=== PATIENT | female | born 1975 | race Caucasian/White ===

== ENCOUNTER → 2016-08-23 | Outpatient (CLI) | payer MEDICAID ==
[~2016-08-23] MED LIST: ALBU8.5H2 IH; ALPR1TAB7 PO; FLUT1DIS26 IH; HYDR-2890 PO; HYDR-757 PO; IBUP-1780 PO; IBUP800T26 PO; OXYC-12 PO; PHEN-566 PO; SULF-222 PO; SULF1TAB35 PO
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
--- NOTE | 2016-08-23 17:09 | Diagnostic Imaging Report ---
EXAMINATION: Bilateral digital screening mammogram with CAD. The current study was also evaluated with a Computer Aided Detection (CAD) system. INDICATION: Screening. No current complaints stated on the questionnaire. COMPARISON: None. This is baseline study. FINDINGS: The breasts are composed of scattered fibroglandular densities. Lateral right breast asymmetry measuring 7 mm is seen, possibly related to summation artifact of parenchyma. The left breast demonstrates no significant abnormality. No suspicious calcification is seen. IMPRESSION: Focal compression views and ultrasound evaluation for lateral right breast asymmetry is recommended. ACR BI-RADS Category 0: Incomplete. (Needs additional imaging evaluation). Result letter will be mailed to the patient. Note: At least 10% of breast cancer is not imaged by mammography. Dictated by: Dictated on workstation # [id number]
== END ==
LOC: RAD 12:57
PROVIDERS: ATTEND Obstetrics & Gynecology
DX: Z12.31 Encounter for screening mammogram for malignant neoplasm of breast (principal)
CPT/HCPCS: 77067

== ENCOUNTER → 2016-08-31 | Outpatient (CLI) | payer MEDICAID ==
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
--- NOTE | 2016-08-31 08:25 | Diagnostic Imaging Report ---
Right breast diagnostic mammogram. CAD is utilized. INDICATION: Asymmetry in the outer aspect of the right breast. FINDINGS: Focal compression view demonstrates persistent asymmetry in the outer aspect of the right breast measuring 6 mm in size. There is no definitive correlate on the true lateral projection. IMPRESSION: Persistent slightly more prominent asymmetry along the lateral aspect of the right breast and focal compression view with no definite correlate on the true lateral projection. Ultrasound evaluation pending. ACR BI-RADS Category 0: Incomplete. (Needs additional imaging evaluation). Result letter will be mailed to the patient. Note: At least 10% of breast cancer is not imaged by mammography. Dictated by: Dictated on workstation # [id number]
--- NOTE | 2016-08-31 12:36 | Diagnostic Imaging Report ---
Right breast ultrasound. INDICATION: Lateral right breast asymmetry seen on mammography. FINDINGS: At 9 o'clock zone, 9 cm from the nipple, there is a 6 x 3 x 6-mm cluster of cysts seen. The mammographic asymmetry appears close up to the nipple and is slightly larger raising question that this could be a different lesion. No other lesion is detected by ultrasound. IMPRESSION: Questionably matching 6-mm cluster of cysts lateral aspect of the right breast is seen. Four-month followup right breast mammogram is recommended to ensure stability. ACR BI-RADS Category 3: Probably benign findings. Result letter will be mailed to the patient. Note: At least 10% of breast cancer is not imaged by mammography. Dictated by: Dictated on workstation # [id number]
== END ==
LOC: RAD 07:52
PROVIDERS: ATTEND Obstetrics & Gynecology
DX: R92.8 Other abnormal and inconclusive findings on diagnostic imaging of breast (principal)

== ENCOUNTER → 2018-08-07 | Outpatient (CLI) | payer MEDICAID ==
[~2018-08-07] MED LIST changes: +HYDR-4226 PO; -HYDR-757 PO
--- NOTE | 2018-08-07 21:20 | Diagnostic Imaging Report ---
INDICATION: Routine screening. Comparison is made with prior mammogram from 08/23/2016. 2-D and 3-D bilateral screening mammography was performed with a Computer Aided Detection (CAD) system. FINDINGS: Scattered fibroglandular densities are identified bilaterally. The parenchymal pattern is stable. Density in the upper portion of the right breast appear stable. No new mass or malignant-appearing microcalcifications are seen. Axillae are unremarkable. Patient has bilateral nipple piercings. IMPRESSION: No mammographic features suspicious for malignancy are identified. ACR BI-RADS Category 1: Negative. Result letter will be mailed to the patient. Note: At least 10% of breast cancer is not imaged by mammography. Dictated by: Dictated on workstation # [id number]
== END ==
LOC: RAD 14:23
PROVIDERS: ATTEND Obstetrics & Gynecology
DX: Z12.31 Encounter for screening mammogram for malignant neoplasm of breast (principal)
CPT/HCPCS: 77067

== ENCOUNTER 2018-08-22 11:49 | Outpatient (CLI) | payer MEDICAID ==
[~2018-08-22] VITALS: Ht 165.1 cm; Wt 110.5 kg
[2018-08-22] MEDS ORDERED: ALPR1TAB7 PO (12:02)
[2018-08-22] MEDS ORDERED: BUDE10.2 IH (12:02)
[2018-08-22] MEDS ORDERED: IBUP-1780 PO (12:02)
[2018-08-22] MEDS ORDERED: RT-ALBUINH IH (12:02)
[2018-08-22] MEDS ORDERED: PHEN-483 PO (12:02)
[2018-08-22 12:08] VITALS: BP 114/76
[2018-08-22 12:58] LABS: BASOPHILS % (AUTO) 1 % (0-10); EOSINOPHILS # (AUTO) 0.2 10^3/uL (0.0-0.3); EOSINOPHILS % (AUTO) 3 % (0-10); HEMATOCRIT 48 % (35-52); HEMOGLOBIN 15.4 G/DL (11.5-16.0); LYMPHOCYTES # (AUTO) 1.3 X 10^3 (1.0-4.0); LYMPHOCYTES % (AUTO) 22 % (12-44); MEAN CORPUSCULAR HEMOGLOBIN 32 PG (25-34); MEAN CORPUSCULAR HGB CONC 32 G/DL (32-36); MEAN CORPUSCULAR VOLUME 99 FL (80-99); MEAN PLATELET VOLUME 9.2 FL (7.4-10.4); MONOCYTES # (AUTO) 0.4 X 10^3 (0.0-1.0); MONOCYTES % (AUTO) 7 % (0-12); NEUTROPHILS # (AUTO) 4.1 X 10^3 (1.8-7.8); NEUTROPHILS % (AUTO) 68 % (42-75); PLATELET COUNT 338 10^3/uL (130-400); WHITE BLOOD COUNT 6.1 10^3/uL (4.3-11.0)
== END 2018-08-22 13:10 | disposition home or self-care (01) ==
LOC: PREOP 11:49
PROVIDERS: ATTEND Obstetrics & Gynecology
DX: Z01.812 Encounter for preprocedural laboratory examination (principal); Z11.2 Encounter for screening for other bacterial diseases; N92.0 Excessive and frequent menstruation with regular cycle; N39.3 Stress incontinence (female) (male); N81.4 Uterovaginal prolapse, unspecified; D64.9 Anemia, unspecified
CPT/HCPCS: 36415; 85025; 86850; 86900; 86901; 87081

== ENCOUNTER 2018-08-29 10:14 | Inpatient (IN) | payer MEDICAID | END 2018-09-01 13:40 | disposition home or self-care (01) | LOC: SDC 10:14 → 4TH 16:40 → SDC 08-30 12:16 → 4TH 08-30 14:00 ==

== ENCOUNTER → 2018-12-29 | Outpatient (CLI) | payer MEDICAID ==
[~2018-12-29] MED LIST changes: +BUDE10.2 IH; +DOCU-143 PO; +HOLD METFORMIN - RECEIVED CONTRAST 20 ML VIAL IV SCH; +IOHEXOL 350 MG/ML 100 ML (OMNIPAQUE 350) VIAL IV ONE; +NICO-587 TD; +NS 100 ML (IVPB) BAG IV ONE; +OXYC1TAB87 PO; +PHEN-483 PO; +RT-ALBUINH IH
--- NOTE | 2018-12-29 15:24 | Diagnostic Imaging Report ---
PROCEDURE: CT abdomen and pelvis with contrast. TECHNIQUE: Multiple contiguous axial images were obtained through the abdomen and pelvis after administration of intravenous contrast. Auto Exposure Controls were utilized during the CT exam to meet ALARA standards for radiation dose reduction. INDICATION: Abdominal wall hernia. COMPARISON: Correlation is made with prior CT from 12/04/2015. FINDINGS: The lung bases are clear. The liver demonstrates mild generalized low density consistent with hepatic steatosis. Hyperdensity in the left lobe of the liver is noted measuring 15 mm. This is isodense to the liver on delayed images and most likely represents a hemangioma. The gallbladder appears to be surgically absent. There is no biliary duct dilatation. Pancreas and spleen are unremarkable. No adrenal mass is detected. The right kidney is unremarkable. Left kidney does contain a 3 mm nonobstructing calculus in the upper pole. No hydronephrosis is seen. Aorta is nonaneurysmal. The small and large bowel loops appear to be normal in caliber. No obstruction is seen. There are postsurgical changes involving small bowel loops in the right abdomen. There is diverticulosis of the sigmoid but no evidence of acute diverticulitis. Bladder is decompressed. Uterus is unremarkable. There is a midline and left paramidline fat containing ventral hernia. No herniated bowel loops are identified. IMPRESSION: 1. Hepatic steatosis. 2. Probable hemangioma in the left lobe of the liver. 3. Fat-containing midline and left paramidline ventral hernia. No bowel obstruction is seen. 4. Uncomplicated diverticulosis. Dictated by: Dictated on workstation # [id number]
== END ==
LOC: RAD 14:32
PROVIDERS: ATTEND Obstetrics & Gynecology
DX: K43.9 Ventral hernia without obstruction or gangrene (principal); K76.0 Fatty (change of) liver, not elsewhere classified; K57.30 Diverticulosis of large intestine without perforation or abscess without bleeding
CPT/HCPCS: 74177

== ENCOUNTER 2019-04-08 12:22 | Outpatient (CLI) | payer MEDICAID ==
[~2019-04-08] VITALS: Ht 166.4 cm; Wt 112.1 kg
[~2019-04-08 12:22] MED LIST changes: -HOLD METFORMIN - RECEIVED CONTRAST 20 ML VIAL IV SCH; -IOHEXOL 350 MG/ML 100 ML (OMNIPAQUE 350) VIAL IV ONE; -NS 100 ML (IVPB) BAG IV ONE
[2019-04-08 12:35] VITALS: BP 125/81
[2019-04-08] MEDS ORDERED: FLUO20CA25 PO (12:35)
[2019-04-08] MEDS ORDERED: PANT40TA3 PO (12:35)
[2019-04-08] MEDS ORDERED: IBUP-1780 PO (12:35)
[2019-04-08 13:04] LABS: BASOPHILS % (AUTO) 1 % (0-10); EOSINOPHILS # (AUTO) 0.1 10^3/uL (0.0-0.3); EOSINOPHILS % (AUTO) 2 % (0-10); HEMATOCRIT 41 % (35-52); HEMOGLOBIN 13.1 G/DL (11.5-16.0); LYMPHOCYTES # (AUTO) 1.3 X 10^3 (1.0-4.0); LYMPHOCYTES % (AUTO) 19 % (12-44); MEAN CORPUSCULAR HEMOGLOBIN 31 PG (25-34); MEAN CORPUSCULAR HGB CONC 32 G/DL (32-36); MEAN CORPUSCULAR VOLUME 97 FL (80-99); MEAN PLATELET VOLUME 9.1 FL (7.4-10.4); MONOCYTES # (AUTO) 0.6 X 10^3 (0.0-1.0); MONOCYTES % (AUTO) 8 % (0-12); NEUTROPHILS # (AUTO) 4.8 X 10^3 (1.8-7.8); NEUTROPHILS % (AUTO) 70 % (42-75); PLATELET COUNT 381 10^3/uL (130-400); WHITE BLOOD COUNT 6.8 10^3/uL (4.3-11.0)
== END 2019-04-08 12:55 | disposition home or self-care (01) ==
LOC: PREOP 12:22
PROVIDERS: ATTEND Obstetrics & Gynecology
DX: Z01.818 Encounter for other preprocedural examination (principal); N92.0 Excessive and frequent menstruation with regular cycle; N39.3 Stress incontinence (female) (male); N81.89 Other female genital prolapse; D64.9 Anemia, unspecified
CPT/HCPCS: 36415; 85025; 86850; 86900; 86901; 87081

== ENCOUNTER 2019-04-17 10:18 | Day surgery (SDC) | payer MEDICAID ==
[~2019-04-17] VITALS: Ht 112.1 cm; Wt 112.1 kg
[2019-04-17] VITALS (15 sets, daily range): BP systolic 111–146; BP diastolic 71–101
[~2019-04-17 10:18] MED LIST changes: +FLUO20CA25 PO; +PANT40TA3 PO
[2019-04-17] MEDS ORDERED: LACTATED RINGERS 1,000 ML IV PRN (10:29)
[2019-04-17] MEDS ORDERED: ceFAZolin INJECTION 1,000 MG in WATER (STERILE) FOR INJECTION 10 ML IV ONE (10:30)
[2019-04-17] MEDS ORDERED: MIDAZOLAM 2 MG/2 ML (VERSED) VIAL IV ONE (10:45)
[2019-04-17] MEDS ORDERED: FAMOTIDINE 20MG/2ML IV (PEPCID) IV ONE (10:45)
[2019-04-17] MEDS ORDERED: ONDANSETRON 4 MG/2 ML (SDV) Z0FRAN ONE (10:56)
[2019-04-17] MEDS ORDERED: ROCURONIUM 10 MG/ML 5 ML SYRINGE IV ONE (10:56)
[2019-04-17] MEDS ORDERED: proPOfol 200 MG/20 ML (DIPRIVAN) VIAL IV ONE (10:56)
[2019-04-17] MEDS ORDERED: SEVOFLURANE (ULTANE) 15 ML INHAL SOLN ONE ×10 (10:56→15:22)
[2019-04-17] MEDS ORDERED: LIDOCAINE PF 2% 5 ML (XYLOCAINE) VIAL ONE (10:56)
[2019-04-17] MEDS ORDERED: DEXAMETHASONE 10 MG/ML (DECADRON) 1 ML VIAL ONE (10:56)
[2019-04-17] MEDS ORDERED: MIDAZOLAM 2 MG/2 ML (VERSED) VIAL ONE (10:57)
[2019-04-17] MEDS ORDERED: fentaNYL INJECTION 250 MCG/5 ML AMP ONE (10:57)
[2019-04-17] MEDS ORDERED: BUPIVACAINE 0.25% 30 ML (SENSORCAINE) VIAL ONE (11:38)
[2019-04-17] MEDS ORDERED: ESTRADIOL VAGINAL CREAM 42.5 GM (ESTRACE) VG ONE (11:38)
--- NOTE | 2019-04-17 12:11 | Progress Note-Pre Operative ---
Pre-Operative Progress Note H&P Reviewed The H&P was reviewed, patient examined and no changes noted. Date Seen by Provider: Apr 17, 2019 Time Seen by Provider: 12:10 Date H&P Reviewed: Apr 17, 2019 Time H&P Reviewed: 12:10 Pre-Operative Diagnosis: dub/hermila/cpp/menorrhagia JOVAN KIRKLAND MD Apr 17, 2019 12:11
--- NOTE | 2019-04-17 12:12 | Progress Note-Post Operative ---
Post-Operative Progess Note Surgeon (s)/Button Grader (s) Surgeon JOVAN KIRKLAND MD Button Grader: Tomasa Arevalo Pre-Operative Diagnosis dub/hermila/cpp/menorrhagia Post-Operative Diagnosis Same with extensive abdominal wall adhesions and with pathology pending Procedure & Operative Findings Date of Procedure 04/17/19 Procedure Performed/Findings T LH with bilateral salpingectomy, extensive adhesiolysis, as well as anterior posterior vaginal repairs with Dr. Hare doing a pubovaginal sling and cystoscopy Anesthesia Type GETA Estimated Blood Loss Estimated blood loss (mL): 400 cc Specimens/Packing Specimens Removed Uterus and fallopian tubes Packing: Kerlix gauze in the vagina JOVAN KIRKLAND MD Apr 17, 2019 12:12
--- NOTE | 2019-04-17 12:13 | Discharge Instructions ---
Discharge Instructions Discharge Medications New, Converted or Re-Newed RX: RX on Chart Patient Instructions Return to The Hospital For: As directed Activity & Diet Discharge Diet: No Restrictions Activity as Tolerated: No Orders-Post D/C & Referrals Follow Up Appt: Return to clinic on Saturday, April 20, 2019 at 930 a.m. for staple removal Call to make follow up appt. for patient in 4 weeks. Activity: Rest for 24 hours, than as tolerated. Wound Care: May remove Band-Aid tomorrow. Replace as desired. Keep incisions clean and dry. Wash daily with soap and water. Please call in RX to patient pharmacy. Diet: As tolerated-Clear Liquids only if nauseated. shower or tub bathe as desired. No driving for 24 hours, no alcoholic beverages for 24 hours, and nothing per vagina (no tampons, douching, or intercourse) for 8 weeks. Patient to return to the clinic as soon as possible for: Temperature greater than 101F, Severe Pain, Foul discharge from incision or vagina, Excessive Bleeding (more than a period). JOVAN KIRKLAND MD Apr 17, 2019 12:13
[2019-04-17] MEDS ORDERED: OXYC1TAB87 PO (12:15)
[2019-04-17] MEDS ORDERED: IBUP-1780 PO (12:15)
[2019-04-17] MEDS ORDERED: DOCU-143 PO (12:15)
[2019-04-17] MEDS ORDERED: ESTROGENS CONJ IV 25 MG/5 ML (PREMARIN) VIAL IVP ONE (14:15)
[2019-04-17] MEDS ORDERED: ONDANSETRON 4 MG/2 ML (SDV) Z0FRAN IVP PRN ×2 (14:15→15:30)
[2019-04-17] MEDS ORDERED: PROMETHAZINE INJ 25 MG/ML (PHENERGAN) AMP IM PRN (14:15)
[2019-04-17] MEDS ORDERED: KETOROLAC 30 MG/ML VIAL ONE (14:33)
[2019-04-17] MEDS: KETOROLAC 30 MG/ML VIAL IVP SCH ×2 (15:00→22:07)
[2019-04-17] MEDS ORDERED: RT-ALBUTEROL HFA (VENTOLIN) PER PUFF IH ONE ×6 (15:05→15:08)
[2019-04-17] MEDS: RT-ALBUTEROL SULF 2.5 MG/3 ML PRE-MIX VIAL ONE ×2 (15:18→17:34)
[2019-04-17] MEDS ORDERED: fentaNYL INJECTION 100 MCG/2 ML AMP ONE (15:22)
[2019-04-17] MEDS ORDERED: PHENYLEPHRINE 100 MCG/ML 10 ML (ANESTHESIA) SYR ONE ×2 (15:22→15:23)
[2019-04-17] MEDS: fentaNYL INJECTION 100 MCG/2 ML AMP IVP ONE ×2 (15:30→15:40)
[2019-04-17] MEDS ORDERED: ESTROGENS CONJ IV 25 MG/5 ML (PREMARIN) VIAL ONE (16:03)
--- NOTE | 2019-04-17 16:30 | NUR ---
GLORIA CANAS admitted to room 3305-1 VIA PT BED FROM PACU ACC BY SADA PADGETT FACTORY FOCUS TECHNICIAN AFTER A ROBOTIC ASSISTED TOTAL HYSTERECTOMY AND BILATERAL SALPINGECTOMY, ANTERIOR AND POSTERIOR REPAIR AND LYSIS OF ADHESIONS BY DR. KIRKLAND AND A CYTOSCOPY AND PUBOVAGINAL SLING BY DR. BOLTON TODAY. GLORIA CANAS introduced to surroundings, call light, bed controls, phone, TV, temperature control, lights, meal times, smoking policy, visitor policy, side rail policy, bathrooms and showers. Patient Rights given to patient in the handbook.
--- NOTE | 2019-04-17 16:45 | NUR ---
PT S.O. PLACED CALL LIGHT ON PT DEMANDED TO GET OUT OF THE BED. PT C/O NEED TO POOP. STRESSED TO PT NOT TO STRAIN. ASSISTED BACK TO BED. C/O PAIN/PRESSURE FROM PACK BEING A "50/10". NE THRASHING AND YELLING. ATTEMPTED TO CALM PT DOWN. ASSESSING PT. IV PLACED ON PUMP WITH NEW TUBING. SITE POSITIONAL.
[2019-04-17] MEDS ORDERED: BUTORPHANOL INJ 2 MG/ML (STADOL) VIAL ONE (16:48)
[2019-04-17] MEDS ORDERED: D5 LR IV SOLUTION 1,000 ML IV ONE (16:52)
[2019-04-17] MEDS: WATER (STERILE) FOR INJ 10 ML BTL INJ ONE ×2 (16:56→17:38)
[2019-04-17] MEDS: BUTORPHANOL INJ 2 MG/ML (STADOL) VIAL IV PRN ×2 (17:02→20:32)
[2019-04-17] MEDS: D5 LR IV SOLUTION 1,000 ML IV SCH (17:02)
--- NOTE | 2019-04-17 17:02 | NUR ---
STADOL 2 MG IVP. PT ON CONTINUOUS SPO2 MONITORING WITH O2 @4L/M/NC. MAINTAINING SPO2 WELL AT 97-99%. ABDOMINAL HERNIA VISIBLE. ABDOMEN OTHERWISE SOFT. VAGINAL PACKING INTACT WITH SMALL AMOUNT OF PINKISH BLOOD ON TAIL OF PACK. RAYMOND PATENT TO DD WITH SMALL AMOUNT OF CLOUDY YELLOW BROWN URINE.
--- NOTE | 2019-04-17 17:30 | NUR ---
PT SNORING LOUDLY. CONTINUES TO MAINTAIN SPO2 AT 100%. VS Q 30 MINUTES AND CONTINUOUS SPO2 MONITORING. S.O. AT BEDSIDE.
--- NOTE | 2019-04-17 18:00 | NUR ---
CONTINUES TO SLEEP AND SNORE. MAINTAINING SPO2.
--- NOTE | 2019-04-17 18:30 | NUR ---
PT AWAKE AND WANTING TO EAT AND HAVE SOMETHING MORE FOR PAIN. S.O. ORDERED FOOD. VSS.
[2019-04-17] MEDS: BENZOCAINE/MENTHOL (DERMOPLAST) 56 ML CAN TP PRN (18:41)
[2019-04-17] MEDS: oxyCODONE/APAP 5/325MG (PERCOCET 5) TABLET PO PRN ×2 (18:42→23:54)
--- NOTE | 2019-04-17 18:42 | NUR ---
PERCOCET 5/325 2 TABS P.O. FOR C/O PAIN RATED 8/10. URINE OUTPUT MUCH MORE CLEAR. S.O. REMAINS AT BEDSIDE.
--- NOTE | 2019-04-17 19:03 | OPERATIVE REPORT ---
DATE OF SERVICE: 04/17/2019 PREOPERATIVE DIAGNOSIS: On my part, stress urinary incontinence. POSTOPERATIVE DIAGNOSIS: On my part, stress urinary incontinence. OPERATION PERFORMED: Pubovaginal sling and cystoscopy. SURGEON: Marquis Bolton MD ANESTHESIA: General. COMPLICATIONS: None. DESCRIPTION OF PROCEDURE: Under satisfactory general anesthesia, the patient in lithotomy position after Dr. Camp performed the first part of his surgery that he will dictate. We inserted a Lee catheter draining clear urine. I passed the Solyx device with the pubovaginal sling on both sides using the described technique. The sling was sitting nicely under the mid urethra with no tension, no twist and passage of a hemostat easily between it and the underlying tissue. I removed the Lee catheter to perform cystoscopy to confirm the integrity of the ureters, the bladder, the urethra with no foreign body and presence of the sling under the mid urethra. I left the bladder at least half full to perform a manual Valsalva maneuver after removing the cystoscope and it was negative. I reinserted the Lee catheter draining clear fluid. Estimated blood loss for my part negligible and Dr. Camp proceeded with the rest of his surgery that he will dictate. Job ID: [id number] DocumentID: [id number] Dictated Date: 04/17/2019 14:53:25 2[employer] Grade Teacher Date: 04/17/2019 19:02:32 Dictated By: MARQUIS BOLTON MD
--- NOTE | 2019-04-17 19:15 | OPERATIVE REPORT ---
DATE OF SERVICE: 04/17/2019 PREOPERATIVE DIAGNOSES: Dysfunctional uterine bleeding, menorrhagia and uterovaginal prolapse. POSTOPERATIVE DIAGNOSES: Dysfunctional uterine bleeding, menorrhagia and uterovaginal prolapse with extensive abdominal adhesions. OPERATIVE PROCEDURE: Total laparoscopic hysterectomy with bilateral salpingectomies as well as anterior and posterior vaginal repairs with enterocele repair with Dr. Lin doing a pubovaginal sling and a cystoscopy. The procedure also involved extensive adhesiolysis of the omentum from the anterior abdominal wall. OPERATIVE DESCRIPTION: With the patient in the supine position under satisfactory general anesthesia, she was repositioned in dorsal lithotomy position in the [facility] and prepped and draped in the usual fashion for abdominal and vaginal surgery using the da Colten for assistance. The weighted speculum placed in posterior fornix of vagina, cervix exposed graft into single tooth tenaculum. Uterus was sounded to 12 cm with uterine sound. Cervix was then serially dilated with Ranjan dilators to accommodate a Nanette II manipulator, which was placed using a 6 mm x 8 cm uterine probe and a 30 mm colpotomy ring. Sutures of #1 Vicryl placed at 3 and 9 o'clock position of the cervix to affix the uterus to the manipulator. The patient was brought in low dorsal lithotomy position after Lee catheter was placed to dependent drainage. A 5 mm incision made in the patient's left upper quadrant at Sahni's point. Veress needle was placed through that incision. Abdominal cavity was insufflated after correct placement was confirmed with water drop test. A 5 mm port was then placed and after the Veress needle was removed, the abdomen was examined. There was extensive adhesion of the omentum to the midline of the anterior abdominal wall, right and left lateral abdominal wall could be visualized. An 8 mm port was placed about 9 cm lateral to the umbilicus and 4 cm superior to the umbilicus on both sides, allowing for adhesiolysis for those ports. Extensive adhesiolysis was undertaken sharply and bluntly with electrocautery and with EndoShears. Eventually, the entire omentum was taken free from the anterior abdominal wall. It did appear that the patient has a fairly significant anterior abdominal wall hernia. That is not new. The adipose tissue probably was adherent into the cavity as well. With the omentum eventually completely freed, the pelvis was fully visible as was the rest of the abdomen, there were no significant adhesions and no abnormal pathology remaining. A 2 mm port was placed 10 cm superior to the umbilicus. The patient was placed in Trendelenburg and the da Colten column was advanced on the patient and docked and operative instrument was placed in right and left lateral ports and I retired to the da Colten console. At the console using the vessel sealer on the right and a bipolar fenestrated grasper on the left, the pelvis was first examined. Both ovaries appeared normal as were the fallopian tubes. The uterus was somewhat mottled in appearance and somewhat boggy, but otherwise appeared normal. There was no overtly abnormal pathology in the pelvis. The appendix could not be visualized due to the overlying bowel. Procedure was initiated by raising the right fallopian tube and then clamping, cauterizing, dividing the mesosalpinx stepwise across to the uteroovarian pedicle, which was also clamped, cauterized and divided across to the round ligament, then down the broad ligament down to the cardinal ligament, which was treated in the same manner. The left side was done in the same manner allowing for removal eventually both fallopian tubes and conservation of both ovaries. It was noted the patient had two ureters on the right. The left ureter could not be seen, but was well away from the area of dissection by its normal route. The anterior lower uterine segment peritoneum was now exposed and using a monopolar shear, the peritoneum was divided. The bladder was carefully dissected down off the lower uterine segment and then colpotomy incision was initiated at the 12 o'clock position. That incision was continued circumferentially until the entire colpotomy ring was exposed and the uterus with tubes still attached was extracted through the vagina. The vaginal cuff was closed with running suture and partially locking of V-Loc barbed suture starting from the first angle and continuing probably 80% across the cuff and then from the left angle back taking care to include the uterine vessel pedicles with the closure. The bladder peritoneum was brought back down on the cuff with the last two stitches. The pelvis was examined for hemostasis that being complete with no abnormal pathology. Sponge and needle counts correct. The operative instruments were removed under direct vision. No bleeding was noted. The abdomen was evacuated of insufflating gas in the process of removing the ports. The dissected area for the adhesiolysis was visualized as the ports and camera removed. There was no significant bleeding. The skin incisions were closed with shankar. The fascia at the supraumbilical incision was closed with [id number] suture of 2-0 Vicryl. Sponge and needle counts at this point were correct. The patient was brought into the dorsal lithotomy position for the anterior and posterior repairs, which was initiated by placing in the posterior vaginal wall a weighted speculum and then grabbing the anterior vaginal wall with two Rito clamps. Incision was made in the midline of the vaginal wall with Metzenbaum scissors. That incision was continued to approximately 1.5 cm from the urethral meatus and all the way to the apex of the vagina. The bladder wall was carefully dissected off the muscularis of the vagina back to pubic rami bilaterally. The endopelvic fascia and bladder wall were then plicated with 2-0 Vicryl sutures, elevating the bladder and lengthening the urethra. At this point, Dr. Lin assumed care of the patient. I remained to assist. While he performed a pubovaginal sling and cystoscopy, he did confirm the integrity and function of both ureteral orifices. He did comment that there was only one on the right, even though two ureters were seemed at the pelvic brim. Dr. Lin left the Lee catheter to dependent drainage on completion of his portion of the procedure and I resumed care of the patient. I resected the anterior redundant anterior vaginal muscularis mucosa and closed the vaginal wall with a running locked suture of 3-0 Vicryl Rapide. Good hemostasis was affected. Good support was evident. Posterior repair was now performed by placing Rito clamps on the perineum and hymenal ring at 5 and 7 o'clock position and inverted triangle of skin was removed from the perineal body and upright triangle from the posterior vaginal floor. The rectovaginal space was entered sharply and dissected bluntly to the apex of the vagina where it was explored for an enterocele there being a fairly moderate and it was ligated with 2 pursestring sutures obliterating that enterocele. Additional sutures of 2-0 Vicryl were used to obliterate the rectovaginal space and then additional sutures still were used to restore the perineal body. Redundant posterior vaginal muscularis mucosa was removed sharply and the vaginal wall was closed with a running locked suture of 3-0 Vicryl Rapide. Again, good support was evident. Good hemostasis was achieved. That closure was continued past the hymenal ring down on the perineal body, then back up subcutaneous to the hymenal ring where the suture was tied. Digital rectal exam confirmed the structure and integrity of the rectum with no sutures into or through the rectal mucosa. No stricture or stenosis of the rectum. The vagina was now filled with Estrace vaginal cream and a pack of Kerlix gauze was placed. Lee catheter was left to dependent drainage. Again, at this point, sponge and needle counts were correct. Estimated blood loss was around 400 mL. The patient tolerated the procedure well and was uneventfully awakened from her general anesthesia and transferred to recovery room in stable condition. Job ID: [id number] DocumentID: [id number] Dictated Date: 04/17/2019 15:12:50 Curriculum Consultant Date: 04/17/2019 19:14:22 Dictated By: JOVAN KIRKLAND MD MTDD
--- NOTE | 2019-04-17 20:00 | NUR ---
pt eating right now, scd's on, leone to jasmin, fresh ice water given, pt requesting pain medication to be given after she is finished eating, friend at bedside.
--- NOTE | 2019-04-17 22:00 | NUR ---
pt laying in bed, s.o. at bedside.
--- NOTE | 2019-04-17 22:30 | NUR ---
pt desires to leave floor to have cigarette. discussed hospital policy and rn would not encourage pt to leave floor with iv, vagpackannabelle and leone. pt requesting nicoderm patch, will call
--- NOTE | 2019-04-17 22:47 | NUR ---
dr. lockwood called and updated on pt's request to leave floor to smoke, new orders received for nicotine patch.
[2019-04-17] MEDS ORDERED: NICOTINE 7 MG (NICODERM) PATCH TD ONE (23:00)
[2019-04-17] MEDS ORDERED: NICOTINE 21 MG (NICODERM) PATCH TD ONE (23:45)
[2019-04-18] VITALS: BP 127/79
[2019-04-18] MEDS ORDERED: NICOTINE 7 MG (NICODERM) PATCH TD ONE
[2019-04-18] MEDS: D5 LR IV SOLUTION 1,000 ML IV SCH ×3 (00:02→21:00)
[2019-04-18 04:01] VITALS: BP 107/69
[2019-04-18] MEDS: KETOROLAC 30 MG/ML VIAL IVP SCH ×2 (04:01→08:10)
[2019-04-18] MEDS: oxyCODONE/APAP 5/325MG (PERCOCET 5) TABLET PO PRN ×3 (05:27→20:50)
[2019-04-18] MEDS: DOCUSATE SODIUM 100 MG (COLACE) CAP PO SCH ×2 (08:07→20:42)
[2019-04-18] MEDS: ESTRADIOL 1 MG TAB (ESTRACE) PO SCH (08:07)
[2019-04-18] MEDS ORDERED: diphenhydrAMINE 25 MG TAB (BENADRYL) PO ONE (08:58)
[2019-04-18] MEDS ORDERED: diphenhydrAMINE 25 MG TAB (BENADRYL) PO PRN (09:00)
[2019-04-18] MEDS: ALPRAZolam 1 MG (XANAX) TAB PO SCH ×2 (09:21→20:42)
--- NOTE | 2019-04-18 09:24 | Progress Note ---
Standard Progress Note Progress Notes/Assess & Plan Date Seen by a Provider: Apr 18, 2019 Time Seen by a Provider: 09:23 Progress/Assessment & Plan This patient is without complaint. She is ambulating, tolerating oral intake well, patient has good pain control. Patient has not voided yet. Surgical procedure was fully discussed including findings and procedure performed. Patient's questions were. Vital Signs Date Time Temp Pulse Resp B/P (MAP) Pulse Ox O2 Delivery O2 Flow Rate FiO2 04/18/19 04:01 35.7 89 16 107/69 (82) 98 Room Air 04/18/19 00:00 36.3 84 16 127/79 (95) 99 Room Air 04/17/19 19:45 36.3 100 18 141/97 (112) 98 Room Air 04/17/19 18:30 36.4 92 18 131/71 (91) 100 Nasal Cannula 4.00 04/17/19 18:00 92 18 124/71 (88) 98 Nasal Cannula 4.00 04/17/19 17:30 96 18 132/82 (99) 100 Nasal Cannula 4.00 04/17/19 17:00 36.4 90 16 126/89 (101) 99 Nasal Cannula 4.00 04/17/19 16:30 Nasal Cannula 4 04/17/19 16:20 36.4 16 140/100 (113) 90 Nasal Cannula 4 04/17/19 16:15 Nasal Cannula 4 04/17/19 16:10 16 146/84 (104) 90 Nasal Cannula 4 04/17/19 16:00 Face Tent 10 04/17/19 16:00 16 138/84 (102) 90 Nasal Cannula 04/17/19 15:50 16 140/101 (114) 90 Nasal Cannula 04/17/19 15:45 Face Tent 10 04/17/19 15:40 16 138/89 (105) 91 Face Tent 10 04/17/19 15:30 16 136/85 (102) 91 Face Tent 10 04/17/19 15:30 Face Tent 10 04/17/19 15:20 16 112/81 (91) 91 10 04/17/19 15:16 Face Tent 10 04/17/19 15:16 16 112/81 (91) 90 Face Tent 10 04/17/19 11:00 36.3 117 20 130/75 (93) 99 Room Air I & O 04/18/19 07:00 Intake Total 2410 ml Output Total 1250 ml Balance 1160 ml Vital signs are stable. Patient is afebrile. Abdomen is benign. The surgical incisions dressings are clean and intact. Extremities show no clubbing or cyanosis. There is no Homans sign. Assessment and plan postoperative day number 1 doing well. Bladder trial is ongoing. Patient will be discharged home when she demonstrates adequate bladder function. JOVAN KIRKLAND MD Apr 18, 2019 09:24
--- NOTE | 2019-04-18 11:17 | NUR ---
PATIENT BLADDER SCANNED AT THIS TIME, FOUND TO HAVE 61 MLS OF URINE NOTED BY BLADDER SCANNER THIS RN WILL CONT TO MONITOR THIS PATIENT FOR URINE RETENTION.
[2019-04-18] MEDS: IBUPROFEN 800 MG (MOTRIN) TAB PO SCH ×2 (14:24→19:57)
--- NOTE | 2019-04-18 14:50 | NUR ---
Dr Lin called to check on pt. updated on bladder scan's done by Renetta WALTER and pt slept most of the morning with little po intake and no void. RN to encourage 1-2L of po fluids over next couple of hours.
--- NOTE | 2019-04-18 14:55 | NUR ---
Report received from Renetta WALTER
--- NOTE | 2019-04-18 15:10 | NUR ---
Rn to pt bedside and reviewed plan of care with pt and s.o. present at bedside. Discussed drinking po fluids of 1-2 liters over a couple of hours and pt verbalized understanding. pt denies feeling like bladder is full.
[2019-04-18 16:21] VITALS: BP 125/69
--- NOTE | 2019-04-18 16:25 | Anesthesia-General Post-Op ---
General Patient Condition Mental Status/LOC: Same as Preop Cardiovascular: Satisfactory Nausea/Vomiting: Absent Respiratory: Satisfactory Pain: Controlled Complications: Absent Post Op Complications Complications None Follow Up Care/Instructions Patient Instructions None needed. Anesthesia/Patient Condition Patient Condition Patient is doing well, no complaints, stable vital signs, no apparent adverse anesthesia problems. No complications reported per nursing. YOUSUF MENEZES CRNA Apr 18, 2019 16:24
--- NOTE | 2019-04-18 16:58 | NUR ---
prescriptions called to [facility] ([facility]) per pt request.
--- NOTE | 2019-04-18 17:10 | NUR ---
Pt tearful in room. s.o. present at bedside. pt states "I feel like you are forcing me to leave and get out." "all the fluids you are having me drink are making me nauseous." Rn reassured pt and reviewed plan of care and what Dr Lin conveyed to nurse for pt to drink fluids over a couple hours. pt did void 50ml clear yellow urine in hat and post void residual of 100ml by bladder scan noted. Rn asked pt if she would like to stay overnight and pt states tearfully "I don't know what to say, I [place] 45min [place] and I don't want to have to come back." Rn discussed with pt that she will contact Dr Lin and Dr Camp regarding pt wishes and rn findings of void and pvr. pt verbalized understanding.
--- NOTE | 2019-04-18 17:20 | NUR ---
Dr lockwood notified of pt void, PVR, pt denies bladder full and pt tearful and uncomfortable with being discharged tonight. RN to [facility] now and report results to Dr Lockwood
--- NOTE | 2019-04-18 17:45 | NUR ---
Dr Lin notified of void of 50ml and PVR and pt will be staying overnight. New orders received.
--- NOTE | 2019-04-18 17:52 | NUR ---
Dr Camp notified of st cath result and new order received.
--- NOTE | 2019-04-18 18:35 | NUR ---
Pt states after 3 attempts to start IV "I'm done for right now I will just drink fluids, I need a break." Rn apologized to pt and asked pt to call when she was ready to try again. pt verbalized understanding and said "ok". pt shower set up with towels. linens changed at this time.
--- NOTE | 2019-04-18 18:45 | NUR ---
pt ambulates self off unit to take debit card to family member.
[2019-04-18 20:41] VITALS: BP 131/68
--- NOTE | 2019-04-18 21:05 | NUR ---
Postvoid bladder scanner reports 15ml, will cont to monitor.
[2019-04-19] MEDS: D5 LR IV SOLUTION 1,000 ML IV SCH ×2 (00:57→07:46)
[2019-04-19 02:16] VITALS: BP 115/60
[2019-04-19] MEDS: IBUPROFEN 800 MG (MOTRIN) TAB PO SCH ×3 (02:16→15:19)
--- NOTE | 2019-04-19 02:45 | NUR ---
Pt uses call light after prior education to call after void, 100ml clear yellow urine noted in hat, PVR 44ml of bladder scanner, pt denies pain or feeling urge to void. will cont to monitor. i/o updated
--- NOTE | 2019-04-19 06:10 | NUR ---
RN to room, 100ml clear yellow urine noted in hat, pt asleep and did not ring call system for rn to perform PVR.
[2019-04-19 07:43] VITALS: BP 114/58
[2019-04-19] MEDS: ESTRADIOL 1 MG TAB (ESTRACE) PO SCH (07:50)
[2019-04-19] MEDS: ALPRAZolam 1 MG (XANAX) TAB PO SCH (07:50)
[2019-04-19] MEDS: oxyCODONE/APAP 5/325MG (PERCOCET 5) TABLET PO PRN ×2 (07:50→15:19)
[2019-04-19] MEDS: DOCUSATE SODIUM 100 MG (COLACE) CAP PO SCH (07:51)
--- NOTE | 2019-04-19 09:00 | NUR ---
Dr lockwood to see pt and reviewed plan of care.
--- NOTE | 2019-04-19 09:30 | Progress Note ---
Standard Progress Note Progress Notes/Assess & Plan Date Seen by a Provider: Apr 19, 2019 Time Seen by a Provider: 09:28 Progress/Assessment & Plan This patient is without complaint. She is ambulating, tolerating oral intake well, patient has good pain control. Patient has not voided yet. Surgical procedure was fully discussed including findings and procedure performed. Patient's questions were. Vital Signs Date Time Temp Pulse Resp B/P (MAP) Pulse Ox O2 Delivery O2 Flow Rate FiO2 04/18/19 04:01 35.7 89 16 107/69 (82) 98 Room Air 04/18/19 00:00 36.3 84 16 127/79 (95) 99 Room Air 04/17/19 19:45 36.3 100 18 141/97 (112) 98 Room Air 04/17/19 18:30 36.4 92 18 131/71 (91) 100 Nasal Cannula 4.00 04/17/19 18:00 92 18 124/71 (88) 98 Nasal Cannula 4.00 04/17/19 17:30 96 18 132/82 (99) 100 Nasal Cannula 4.00 04/17/19 17:00 36.4 90 16 126/89 (101) 99 Nasal Cannula 4.00 04/17/19 16:30 Nasal Cannula 4 04/17/19 16:20 36.4 16 140/100 (113) 90 Nasal Cannula 4 04/17/19 16:15 Nasal Cannula 4 04/17/19 16:10 16 146/84 (104) 90 Nasal Cannula 4 04/17/19 16:00 Face Tent 10 04/17/19 16:00 16 138/84 (102) 90 Nasal Cannula 04/17/19 15:50 16 140/101 (114) 90 Nasal Cannula 04/17/19 15:45 Face Tent 10 04/17/19 15:40 16 138/89 (105) 91 Face Tent 10 04/17/19 15:30 16 136/85 (102) 91 Face Tent 10 04/17/19 15:30 Face Tent 10 04/17/19 15:20 16 112/81 (91) 91 10 04/17/19 15:16 Face Tent 10 04/17/19 15:16 16 112/81 (91) 90 Face Tent 10 04/17/19 11:00 36.3 117 20 130/75 (93) 99 Room Air I & O 04/18/19 07:00 Intake Total 2410 ml Output Total 1250 ml Balance 1160 ml Vital signs are stable. Patient is afebrile. Abdomen is benign. The surgical incisions dressings are clean and intact. Extremities show no clubbing or cyanosis. There is no Homans sign. Assessment and plan postoperative day number 1 doing well. Bladder trial is ongoing. Patient will be discharged home when she demonstrates adequate bladder function. April 19, 2019 Patient without complaint. She is ambulating, voiding, tolerating oral intake well has good pain control. Patient feels ready for discharge home. Vital Signs Date Time Temp Pulse Resp B/P (MAP) Pulse Ox O2 Delivery O2 Flow Rate FiO2 04/19/19 07:43 36.0 95 16 114/58 (76) 97 Room Air 04/19/19 02:16 36.5 93 16 115/60 (78) 96 Room Air 04/18/19 20:41 36.5 104 16 131/68 (89) 95 Room Air 04/18/19 16:21 36.5 96 16 125/69 (87) 96 Room Air I & O 04/19/19 07:00 Intake Total 2720 ml Output Total 675 ml Balance 2045 ml Vital signs are stable. Patient is afebrile. The abdomen is benign. Extremities show no clubbing or cyanosis. There is no Homans sign. Assessment and plan postoperative day number 2 doing well. Patient had poor urine output yesterday and failed to demonstrate adequate bladder function. She has been hydrated through the night and now voiding well. Urinary retention has resolved and she is ready for discharge home. Follow-up will be in clinic. Final Diagnosis Discharging uterine bleeding and uterovaginal prolapse JOVAN KIRKLAND MD Apr 19, 2019 09:30
--- NOTE | 2019-04-19 10:11 | NUR ---
Dr Lin to see pt and review plan of care.
--- NOTE | 2019-04-19 14:53 | NUR ---
shankar out, steri strips applied. extra steri strips given to pt if needed at home to change out if current steri strips get soiled. pt verbalized understanding. pt does appear to have some red rash area where the adhesive was with opsite around incisions as well as where OR adhesive drape was placed over abdomen around left, right side and across lower abdomen. skin intact.
--- NOTE | 2019-04-19 14:55 | NUR ---
Discharge instructions explained, signed and copy to patient. pt verbalized understanding of instructions and denied questions. prescriptions had been obtained the day prior to leaving. pt verbalized understanding of medications and denied questions.
[2019-04-19] MEDS: BENZOCAINE/MENTHOL (DERMOPLAST) 56 ML CAN TP PRN (15:20)
--- NOTE | 2019-04-19 15:40 | NUR ---
Discharged to home with belongings in hand. Downstairs in wheelchair per ws staff and to private vehicle.
== END 2019-04-19 15:40 | disposition home or self-care (01) ==
LOC: SDC 10:18 → WS 16:30 → SDC 04-19 15:40
PROVIDERS: ATTEND Obstetrics & Gynecology
DX: N81.4 Uterovaginal prolapse, unspecified (principal); N93.8 Other specified abnormal uterine and vaginal bleeding; N92.0 Excessive and frequent menstruation with regular cycle; N73.6 Female pelvic peritoneal adhesions (postinfective); N39.3 Stress incontinence (female) (male); J45.909 Unspecified asthma, uncomplicated; K21.9 Gastro-esophageal reflux disease without esophagitis; F32.9 Major depressive disorder, single episode, unspecified; F41.9 Anxiety disorder, unspecified; E66.01 Morbid (severe) obesity due to excess calories; Z68.45 Body mass index [BMI] 70 or greater, adult; Z90.49 Acquired absence of other specified parts of digestive tract; Z88.5 Allergy status to narcotic agent; Z79.899 Other long term (current) drug therapy
CPT/HCPCS: 36415; 84703; 86850; 86900; 86901; 88307

== ENCOUNTER 2019-05-13 11:04 | Outpatient (CLI) | payer MEDICAID ==
[~2019-05-13] VITALS: Ht 165 cm; Wt 112.1 kg
[2019-05-14] MEDS ORDERED: HYDR-34 PO (09:32)
== END 2019-05-13 15:43 | disposition home or self-care (01) ==
LOC: PREOP 11:04
PROVIDERS: ATTEND Surgery
DX: Z01.818 Encounter for other preprocedural examination (principal)

== ENCOUNTER 2019-05-14 09:24 | Day surgery (SDC) | payer MEDICAID ==
[~2019-05-14] VITALS: Ht 165 cm; Wt 112.1 kg
[2019-05-14] VITALS (11 sets, daily range): BP systolic 113–146; BP diastolic 47–96
--- NOTE | 2019-05-14 09:28 | Progress Note-Pre Operative ---
Pre-Operative Progress Note H&P Reviewed The H&P was reviewed, patient examined and no changes noted. Date Seen by Provider: May 14, 2019 Time Seen by Provider: 09:28 Date H&P Reviewed: May 14, 2019 Time H&P Reviewed: :28 Pre-Operative Diagnosis: ventral abdominal incisional hernia JULIET CARREON MD May 14, 2019 09:28 POS
[2019-05-14] MEDS ORDERED: ACETAMINOPHEN 325 MG TABLET PO PRN (09:30)
[2019-05-14] MEDS ORDERED: fentaNYL INJECTION 100 MCG/2 ML AMP IVP PRN (09:30)
[2019-05-14] MEDS ORDERED: HYDROcodone/APAP 7.5 MG/325 MG (LORTAB, LORCET PLUS) TABLET PO PRN (09:30)
[2019-05-14] MEDS ORDERED: ONDANSETRON 4 MG/2 ML (SDV) Z0FRAN IVP PRN ×2 (09:30→14:30)
[2019-05-14] MEDS ORDERED: HYDR-34 PO (09:32)
--- NOTE | 2019-05-14 09:32 | Discharge Inst-Surgical ---
D/C Lap Instructions-LAURI New, Converted, or Re-Newed RX: RX on Chart Follow Up Appt in 2 weeks Activity as tolerated No driving for 24 hours No [address] while on pain medications Incentive Spirometry use every 2 hours while awake Regular Diet Symptoms to Report: Fever over 101 degree F, Nausea/Vomiting Infection Signs and Symptoms to report: Increased redness, Foul odor of wound, Increased drainage Bathing instructions: May shower Operative Area Clean/Dry; Keep incision clean/dry If any problems/questions: Contact your physician or go to Emergency Room JULIET CARREON MD May 14, 2019 09:32 POS
[2019-05-14] MEDS ORDERED: SEVOFLURANE (ULTANE) 15 ML INHAL SOLN ONE ×2 (10:01→10:10)
[2019-05-14] MEDS ORDERED: ROCURONIUM 10 MG/ML 5 ML SYRINGE IV ONE (10:01)
[2019-05-14] MEDS ORDERED: fentaNYL INJECTION 100 MCG/2 ML AMP ONE (10:01)
[2019-05-14] MEDS ORDERED: DEXAMETHASONE 10 MG/ML (DECADRON) 1 ML VIAL ONE (10:01)
[2019-05-14] MEDS ORDERED: ONDANSETRON 4 MG/2 ML (SDV) Z0FRAN ONE (10:01)
[2019-05-14] MEDS ORDERED: LIDOCAINE PF 2% 5 ML (XYLOCAINE) VIAL ONE (10:01)
[2019-05-14] MEDS ORDERED: MIDAZOLAM 2 MG/2 ML (VERSED) VIAL ONE (10:02)
[2019-05-14] MEDS: LACTATED RINGERS 1,000 ML IV PRN ×2 (10:05→13:31)
[2019-05-14] MEDS ORDERED: GLYCOPYRROLATE 0.2 MG/ML (ROBINUL) 2 ML VIAL ONE (10:10)
[2019-05-14] MEDS ORDERED: NEOSTIGMINE 3 MG/3 ML VIAL ONE (10:10)
[2019-05-14] MEDS ORDERED: ceFAZolin 2 GM IV Premixed 50 ML IV ONE (10:15)
[2019-05-14] MEDS ORDERED: BUP/EPI 0.5% 1:200,000 (SENSORCAINE) 30 ML VIAL ONE (11:38)
[2019-05-14] MEDS ORDERED: HYDROmorphone 2 MG/ML VIAL (DILAUDID) ONE ×2 (13:02→14:30)
[2019-05-14] MEDS ORDERED: BUPIVACAINE 0.5% 30 ML (SENSORCAINE) VIAL ONE (13:16)
[2019-05-14] MEDS ORDERED: SUCCINYLCHOLINE INJ 100 MG/5 ML SYR ONE (13:20)
--- NOTE | 2019-05-14 13:30 | Progress Note-Post Operative ---
Post-Operative Progess Note Surgeon (s)/Dining Chair Seat Cushion Trimmer (s) Surgeon JULIET CARREON MD Dining Chair Seat Cushion Trimmer: neida scott [employer] Pre-Operative Diagnosis ventral abdominal incisional hernia Post-Operative Diagnosis same(defect 8x8cm). Procedure & Operative Findings Date of Procedure 05/14/19 Procedure Performed/Findings open ventral abd incisional hernia repair with mesh. Anesthesia Type GET Estimated Blood Loss Estimated blood loss (mL): minimal Specimens/Packing Specimens Removed hernia sac JULIET CARREON MD May 14, 2019 13:30 POS
[2019-05-14] MEDS ORDERED: HYDROmorphone 2 MG/ML VIAL (DILAUDID) IV ONE (14:30)
[2019-05-14] MEDS ORDERED: fentaNYL INJECTION 100 MCG/2 ML AMP IVP ONE (14:30)
[2019-05-14] MEDS ORDERED: diphenhydrAMINE 50 MG/ML INJ (BENADRYL) ONE (15:11)
[2019-05-14] MEDS ORDERED: diphenhydrAMINE 50 MG/ML INJ (BENADRYL) IVP ONE ×2 (15:15)
--- NOTE | 2019-05-14 19:02 | OPERATIVE REPORT ---
DATE OF SERVICE: 05/14/2019 ATTENDING PRIMARY CARE PHYSICIAN: Dr. Ganga Cervantes. PREOPERATIVE DIAGNOSIS: Ventral abdominal incisional hernia. POSTOPERATIVE DIAGNOSIS: Ventral abdominal incisional hernia with hernia defect dimensions 8 x 8 cm in size. PROCEDURE: Open ventral abdominal incisional hernia repair with mesh. SURGEON: Elijah Carreon MD FOOD SERVICE KITCHEN SUPERVISOR: Gilson Muniz APRN ANESTHESIA: General endotracheal. ESTIMATED BLOOD LOSS: Minimal. FINDINGS: Ventral abdominal incisional hernia with omentum within the hernia sac. The dimensions of the fascial defect were 8 x 8 cm in size. DISPOSITION: The patient tolerated the procedure well. INDICATIONS: The patient is a 43-year-old female, who we have seen in the past initially for right upper abdominal quadrant pain with nausea, vomiting and was found to have significant gallstones and underwent a laparoscopic cholecystectomy in 2014. We then had seen her for an intraoperative consultation on 08/29/2018 where she was in the process of undergoing a robotic-assisted laparoscopic cholecystectomy and a pubovaginal sling placement for uterine fibroids as well as menorrhagia and during pneumoinsufflation, the primary surgeon noted resistance with insufflation and difficulty obtaining tympany of the abdomen and after 10 mm port was placed, it appeared the port was seen in the hollow viscus. We had seen the patient for intraoperative evaluation. It appeared that the trocar was placed in the small bowel and she then underwent a mini laparotomy, lysis of adhesions as well as a small bowel resection and anastomosis. We had seen her in the office for pain along the incision site, which had grown larger in size. She was found to have a reducible ventral abdominal incisional hernia, which was tender to palpation. She is also status post laparoscopic total hysterectomy and bladder sling placement on 04/17/2019. DESCRIPTION OF PROCEDURE: The patient was brought to the operating room, laid supine on the table. After adequate IV pain and sedative medications and general endotracheal intubation, the abdomen was prepped and draped in standard surgical fashion. A 0.5% Marcaine with epinephrine was used to anesthetize the overlying skin in the midline previous laparotomy incision. The skin was then opened using a 15 blade. The subcutaneous tissue was then opened using electrocautery. The hernia sac was identified and completely dissected out using electrocautery as well as blunt dissection. We proceeded with this manner until the fascia was identified and the defect was approximately 8 x 8 cm in size. The hernia sac was then opened using Metzenbaum scissors and completely dissected out using cautery under direct visualization. There was only omentum within the hernia sac. There were also omental adhesions towards the anterior abdominal wall, which were taken down using blunt dissection as well as electrocautery with visualization of good hemostasis. A Bard coated polypropylene mesh 13.8 x 17.8 cm in size was then placed into the defect and then transfascial sutures were placed concentrically around approximating the mesh to the fascia using interrupted 0 Prolene sutures. Good hemostasis was observed. The subcutaneous tissue was then reapproximated using 3-0 Vicryl interrupted suture. Skin was closed using 4-0 Monocryl running subcuticular suture. The wound was then cleaned and covered with tonsil sponges, followed by 4 x 4 gauze, followed by a large Op-Site and an abdominal binder. The patient tolerated the procedure well. We will start IV and oral pain medication as well as a clear liquid diet. Once she is tolerating clears, has good pain control with oral pain medications, is ambulating well, we will discharge her home. She will be instructed to do no heavy lifting or exertion for the next six weeks. Job ID: [id number] DocumentID: [id number] Dictated Date: 05/14/2019 13:39:47 Simulation Developer Date: 05/14/2019 19:00:55 Dictated By: LEIJAH CARREON MD
== END 2019-05-14 16:30 | disposition home or self-care (01) ==
LOC: SDC 09:24
PROVIDERS: ATTEND Surgery
DX: K43.9 Ventral hernia without obstruction or gangrene (principal); J45.909 Unspecified asthma, uncomplicated; E66.01 Morbid (severe) obesity due to excess calories; F41.8 Other specified anxiety disorders; F17.200 Nicotine dependence, unspecified, uncomplicated; Z90.49 Acquired absence of other specified parts of digestive tract; Z90.710 Acquired absence of both cervix and uterus; Z79.899 Other long term (current) drug therapy; Z68.41 Body mass index [BMI] 40.0-44.9, adult; Z88.8 Allergy status to other drugs, medicaments and biological substances; Z88.5 Allergy status to narcotic agent; Z82.49 Family history of ischemic heart disease and other diseases of the circulatory system; Z83.3 Family history of diabetes mellitus; Z80.3 Family history of malignant neoplasm of breast; Z80.49 Family history of malignant neoplasm of other genital organs
CPT/HCPCS: 87081

== ENCOUNTER 2019-08-31 05:28 | Outpatient (CLI) | payer MEDICAID ==
[~2019-08-31] VITALS: Ht 165.1 cm; Wt 113.6 kg
[~2019-08-31 05:28] MED LIST changes: -FLUO20CA25 PO; +FLUO20CA45 PO; +HYDR-34 PO
== END 2019-08-31 13:58 | disposition home or self-care (01) ==
LOC: PREOP 05:28
PROVIDERS: ATTEND Surgery
DX: Z01.818 Encounter for other preprocedural examination (principal)

== ENCOUNTER 2019-09-03 08:04 | Day surgery (SDC) | payer MEDICAID ==
--- NOTE | 2019-08-24 11:31 | HISTORY AND PHYSICAL ---
DATE OF SERVICE: PROCEDURE DATE: 09/03/2019. ATTENDING PRIMARY CARE PHYSICIAN: and Dr. Camp. HISTORY OF PRESENT ILLNESS: The patient is a 44-year-old female, who is known to us. She was seen before in the past, initially for the right upper quadrant abdominal pain with associated nausea and vomiting, was found to have significant gallstones. She underwent a laparoscopic cholecystectomy in 2014. She was then seen for intraoperative consultation on 08/29/2018, where she was in the process of undergoing a robotic-assisted total hysterectomy with a pubovaginal sling placement for a uterine fibroid as well as menorrhea. During the pneumo insufflation, primary surgeon did notice resistance with insufflation, difficulty obtaining tympany of the abdomen after a 10 mm port was placed. The port was in a hollow viscus. We had seen the patient for intraoperative evaluation. The trocar was placed into the small bowel. She then underwent a mini laparotomy, lysis of adhesions as well as small bowel resection and anastomosis. She did well and was eventually sent home. She was then seen in 04/2019 for an incisional hernia along the previous mini laparotomy incision site. She states this occurred several weeks after the procedure. She reports that it has grown larger in size, became painful. Upon examination, there was a ventral abdominal incisional hernia, which was reducible; however, tender to palpation. She then underwent a ventral abdominal incisional hernia repair with mesh with the defect dimensions of 8 x 8 cm in size and this was performed on 05/14/2019. She then reported back to the office on 08/14/2019 with complaints of recurrent abdominal pain as well as bulging over the previous incision from the hernia repair. She reports at that time, this has been there for 2 to 3 weeks and had become worse over the time and did report some nausea, but denied any diarrhea or constipation. She reports that she believes that she does have another hernia. PAST MEDICAL HISTORY: Nephrolithiasis, uterine fibroids, gastroesophageal reflux disease, anxiety and depression. PAST SURGICAL HISTORY: Extra shockwave lithotripsy x 3, left foot ORIF in 2005 with hardware removal in 2006, abdominoplasty and liposuction in 2008, cervical conization in 1999, laparoscopic cholecystectomy 2014, laparoscopic total hysterectomy and bladder sling in 04/2019. ALLERGIES: MORPHINE and DEMEROL. MEDICATIONS: Xanax 1 mg, Motrin 800 mg, Symbicort, ProAir, Prozac and Protonix. SOCIAL HISTORY: Positive for smoke for 15 pack years. Social for alcohol. FAMILY HISTORY: Mother with breast cancer and hypertension. Father with diabetes. Mother and sister with cervical cancer. Paternal grandfather with prostate cancer. Paternal grandmother with breast cancer with metastasis to the brain. REVIEW OF SYSTEMS: A well-nourished female, in no acute distress. She is not experiencing any shortness of breath or difficulty breathing. No chest pain, palpitations or diaphoresis. No nausea or vomiting. She does report a left-sided abdominal pain near the previous incision. No diarrhea or constipation. No red blood per rectum. No dark tarry stools. No fever or chills. No recent inadvertent weight loss. All other review of systems are negative. PHYSICAL EXAMINATION: VITAL SIGNS: Blood pressure is 155/99. Current weight is 255.0 pounds at 5 feet 5 inches. CHEST: A few scattered expiratory wheezes bilaterally. HEART: Regular and no murmurs. EXTREMITIES: No lower extremity edema. Negative Homans sign. HEENT: No scleral icterus. NECK: No cervical lymphadenopathy. ABDOMEN: Soft and nondistended. With the patient performing Valsalva maneuver, there is a recurrent ventral abdominal incisional hernia at the previous hernia repair site, which is reducible; however, tender to palpation. SKIN: Warm, dry and pink. NEUROLOGIC: Awake, alert and oriented x3. ASSESSMENT AND PLAN: A 44-year-old female with a recurrent symptomatic ventral abdominal incisional hernia. Again, the natural history of hernias were explained to the patient as well as the risks and benefits of the surgery. It was also explained to the patient about the need for weight loss to decrease her risk of further recurrence. She is in full understanding and would like to proceed with open ventral abdominal incisional hernia repair with mesh, which we will proceed with scheduling. Job ID: [id number] DocumentID: [id number] Dictated Date: 08/24/2019 10:21:19 Transfer Agent Date: 08/24/2019 11:30:40 Dictated By: YANET WILDE APRN
[~2019-09-03] VITALS: Ht 165.1 cm; Wt 113.6 kg
[2019-09-03] VITALS (15 sets, daily range): BP systolic 107–138; BP diastolic 70–107
--- NOTE | 2019-09-03 08:26 | Progress Note-Pre Operative ---
Pre-Operative Progress Note H&P Reviewed The H&P was reviewed, patient examined and no changes noted. Date Seen by Provider: Sep 03, 2019 Time Seen by Provider: 08: Date H&P Reviewed: Sep 03, 2019 Time H&P Reviewed: 08:20 Pre-Operative Diagnosis: Symptomatic recurrent incisional hernia YANET WILDE APRN Sep 03, 2019 08:26
[2019-09-03] MEDS ORDERED: ONDANSETRON 4 MG/2 ML (SDV) Z0FRAN IVP PRN (08:30)
[2019-09-03] MEDS ORDERED: ACETAMINOPHEN 325 MG TABLET PO PRN (08:30)
[2019-09-03] MEDS ORDERED: fentaNYL INJECTION 100 MCG/2 ML AMP IVP PRN (08:30)
[2019-09-03] MEDS ORDERED: HYDROcodone/APAP 5 MG/325 MG (LORTAB) TAB PO ONE (08:30)
[2019-09-03] MEDS ORDERED: HYDR-3816 PO (08:30)
--- NOTE | 2019-09-03 08:30 | Discharge Inst-Surgical ---
D/C Lap Instructions-KIDO Reconcile Patient Problems Problems Reviewed?: Yes New, Converted, or Re-Newed RX: RX on Chart Follow Up Appt in 2 weeks Activity as tolerated No driving for 24 hours No driving while on pain medications Incentive Spirometry use every 2 hours while awake Regular Diet Symptoms to Report: Fever over 101 degree F, Nausea/Vomiting Infection Signs and Symptoms to report: Increased redness, Foul odor of wound, Increased drainage Bathing instructions: May shower Operative Area Clean/Dry; Keep incision clean/dry If any problems/questions: Contact your physician or go to Emergency Room YANET WILDE APRN Sep 03, 2019 08:30
[2019-09-03] MEDS ORDERED: ceFAZolin 2 GM/50 ML NS 50 ML IV ONE (08:45)
[2019-09-03] MEDS: LACTATED RINGERS 1,000 ML IV PRN ×2 (08:50→10:35)
[2019-09-03] MEDS ORDERED: BUP/EPI 0.5% 1:200,000 (SENSORCAINE) 30 ML VIAL ONE (08:52)
[2019-09-03] MEDS ORDERED: fentaNYL INJECTION 100 MCG/2 ML AMP ONE ×2 (08:53→10:32)
[2019-09-03] MEDS ORDERED: MIDAZOLAM 2 MG/2 ML (VERSED) VIAL ONE (08:53)
[2019-09-03] MEDS ORDERED: proPOfol 200 MG/20 ML (DIPRIVAN) VIAL IV ONE (10:08)
[2019-09-03] MEDS ORDERED: SEVOFLURANE (ULTANE) 15 ML INHAL SOLN ONE ×8 (10:08→12:10)
[2019-09-03] MEDS ORDERED: SUCCINYLCHOLINE INJ 100 MG/5 ML SYR ONE (10:08)
[2019-09-03] MEDS ORDERED: ONDANSETRON 4 MG/2 ML (SDV) Z0FRAN ONE (10:08)
[2019-09-03] MEDS ORDERED: ROCURONIUM 10 MG/ML 5 ML SYRINGE IV ONE ×2 (10:08→12:02)
[2019-09-03] MEDS ORDERED: LIDOCAINE PF 2% 5 ML (XYLOCAINE) VIAL ONE (10:08)
[2019-09-03] MEDS ORDERED: BUPIVACAINE 0.5% 30 ML (SENSORCAINE) VIAL ONE (10:57)
--- NOTE | 2019-09-03 11:07 | Progress Note-Post Operative ---
Post-Operative Progess Note Surgeon (s)/Narrative Writer (s) Surgeon JULIET CARREON MD Narrative Writer: neida scott RAILWAY SIGNAL TECHNICIAN Pre-Operative Diagnosis Symptomatic recurrent incisional hernia Post-Operative Diagnosis same Procedure & Operative Findings Date of Procedure 09/03/19 Procedure Performed/Findings open recurrent ventral abd incisional hernia repair with mesh. Anesthesia Type get Estimated Blood Loss Estimated blood loss (mL): minimal Specimens/Packing Specimens Removed hernia sac JULIET CARREON MD Sep 03, 2019 11:07
--- NOTE | 2019-09-03 11:47 | Diagnostic Imaging Report ---
INDICATION: Postop instrument count FINDINGS: There is a serpiginous shaped linear foreign object in the left mid abdomen. These could be lap sponge markers. IMPRESSION: Suspected retained surgical sponge. Clinical correlation recommended. Report given to nurse (Breanna) at 11:46 a.m. 09/03/2019/cb Dictated by: Dictated on workstation # [id number]
[2019-09-03] MEDS ORDERED: DEXAMETHASONE 10 MG/ML (DECADRON) 1 ML VIAL ONE (12:19)
[2019-09-03] MEDS: ONDANSETRON 4 MG/2 ML (SDV) Z0FRAN IVP PRN ×2 (12:40→13:25)
[2019-09-03] MEDS ORDERED: HYDROmorphone 2 MG/ML VIAL (DILAUDID) IV ONE (12:45)
[2019-09-03] MEDS ORDERED: fentaNYL INJECTION 100 MCG/2 ML AMP IVP ONE (12:45)
[2019-09-03] MEDS ORDERED: HYDROcodone/APAP 5 MG/325 MG (LORTAB) TAB ONE (14:21)
--- NOTE | 2019-09-03 15:46 | OPERATIVE REPORT ---
DATE OF SERVICE: 09/03/2019 ATTENDING PRIMARY CARE PHYSICIAN: Dr. Ganga Cervantes. PREOPERATIVE DIAGNOSIS: Recurrent ventral abdominal incisional hernia. POSTOPERATIVE DIAGNOSIS: Recurrent ventral abdominal incisional hernia. PROCEDURE: Repair of incarcerated recurrent ventral abdominal incisional hernia with mesh. SURGEON: Elijah Carreon MD. MERCHANDISING STOCK ASSOCIATE: Gilson Muniz APRN. ANESTHESIA: General endotracheal. ESTIMATED BLOOD LOSS: Minimal. FINDINGS: Recurrent hernia along the infero left lateral border of the previous hernia repair, approximately 4 cm in size. Omentum within the hernia sac. DISPOSITION: The patient tolerated the procedure well. INDICATIONS: The patient is a 44-year-old female known to us. She initially underwent attempted robotic laparoscopic hysterectomy. However, due to inadvertent enterotomy, this case was aborted and we proceeded with a segmental. At that time, she underwent an open lysis of adhesions as well as segmental small bowel resection and anastomosis. She eventually underwent a hysterectomy; however, did develop a hernia in the midline supraumbilical incision. This was repaired with mesh 04/2019. Since that time, she has gained weight and she also did notice a bulge along the infero left lateral portion of the previous hernia, and examined in the office and found to have a recurrent ventral abdominal incisional hernia, which was nonreducible. DESCRIPTION OF PROCEDURE: The patient was brought to the operating room, laid supine on the table. After adequate IV pain, sedative medications and general endotracheal intubation, the abdomen was prepped and draped in standard surgical fashion. A 0.5% Marcaine with epinephrine was then used to anesthetize the overlying skin in an L-shape configuration. A skin incision was then made using a 15 blade. The hernia sac was identified and then completely dissected out. This encompassed the inferolateral portion of the previous mesh as well as a hernia sac comprised of the peritoneal lining. The hernia sac was then excised and there was only omentum within the hernia sac. Adhesions were then taken down using Metzenbaum scissors as well as electrocautery and blunt dissection. Good hemostasis was observed and a 15-inch coated polypropylene mesh was then placed in the defect and sutured to the fascia and the previous mesh concentrically in a transfascial manner using 0 Prolene suture. Good hemostasis was observed and the subcutaneous tissue was then reapproximated using 3-0 Vicryl interrupted suture and the skin was closed using 4-0 Monocryl running subcuticular suture. Wound was then cleaned and covered with Dermabond. The umbilical and supraumbilical region was then covered with tonsil sponges followed by sterile gauze followed by large Op-Site followed by a large abdominal binder. The patient tolerated the procedure well. We will start IV normal pain medication as well as a clear liquid diet. When she is tolerating clears, has good pain control with oral pain medications, ambulating well, we will discharge her home. She will be instructed to do no heavy lifting or exertion for the next two weeks. Job ID: [id number] DocumentID: [id number] Dictated Date: 09/03/2019 11:24:30 Municipal Clerk Date: 09/03/2019 15:46:04 Dictated By: ELIJAH CARREON MD MTDD
== END 2019-09-03 15:10 | disposition home or self-care (01) ==
LOC: SDC 08:04
PROVIDERS: ATTEND Surgery
DX: K43.0 Incisional hernia with obstruction, without gangrene (principal); K66.0 Peritoneal adhesions (postprocedural) (postinfection); K21.9 Gastro-esophageal reflux disease without esophagitis; J45.909 Unspecified asthma, uncomplicated; E66.01 Morbid (severe) obesity due to excess calories; F32.9 Major depressive disorder, single episode, unspecified; F17.210 Nicotine dependence, cigarettes, uncomplicated; Z79.899 Other long term (current) drug therapy; Z68.41 Body mass index [BMI] 40.0-44.9, adult; Z90.49 Acquired absence of other specified parts of digestive tract; Z90.710 Acquired absence of both cervix and uterus; Z88.5 Allergy status to narcotic agent; Z88.8 Allergy status to other drugs, medicaments and biological substances; Z85.41 Personal history of malignant neoplasm of cervix uteri; Z82.49 Family history of ischemic heart disease and other diseases of the circulatory system; Z83.3 Family history of diabetes mellitus; F41.9 Anxiety disorder, unspecified; Z80.42 Family history of malignant neoplasm of prostate; Z80.3 Family history of malignant neoplasm of breast; Z80.8 Family history of malignant neoplasm of other organs or systems
CPT/HCPCS: 74018; 76937; 87081

== ENCOUNTER 2019-09-20 14:58 | Emergency (ER) | payer MEDICAID ==
[~2019-09-20] VITALS: Ht 165 cm; Wt 111.4 kg
[~2019-09-20 14:58] MED LIST changes: -FLUO20CA45 PO; +FLUO20CA46 PO
[2019-09-20 15:59] LABS: BILIRUBIN,URINE NEGATIVE (NEGATIVE); CLARITY,URINE CLEAR; COLOR,URINE YELLOW; GLUCOSE, URINE (UA) NEGATIVE (NEGATIVE); KETONES,URINE NEGATIVE (NEGATIVE); LEUKOCYTE ESTERASE ,URINE NEGATIVE (NEGATIVE); NITRITE,URINE NEGATIVE (NEGATIVE); PH,URINE 5.5 (5-9); PROTEIN,URINE NEGATIVE (NEGATIVE)
[2019-09-20 16:07] LABS: BASOPHILS % (AUTO) 1 % (0-10); EOSINOPHILS # (AUTO) 0.3 10^3/uL (0.0-0.3); EOSINOPHILS % (AUTO) 5 % (0-10); HEMATOCRIT 41 % (35-52); HEMOGLOBIN 12.9 G/DL (11.5-16.0); LYMPHOCYTES # (AUTO) 1.4 X 10^3 (1.0-4.0); LYMPHOCYTES % (AUTO) 22 % (12-44); MEAN CORPUSCULAR HEMOGLOBIN 30 PG (25-34); MEAN CORPUSCULAR HGB CONC 31 G/DL (32-36); MEAN CORPUSCULAR VOLUME 95 FL (80-99); MEAN PLATELET VOLUME 8.9 FL (7.4-10.4); MONOCYTES # (AUTO) 0.5 X 10^3 (0.0-1.0); MONOCYTES % (AUTO) 8 % (0-12); NEUTROPHILS # (AUTO) 4.1 X 10^3 (1.8-7.8); NEUTROPHILS % (AUTO) 65 % (42-75); PLATELET COUNT 453 10^3/uL (130-400); WHITE BLOOD COUNT 6.3 10^3/uL (4.3-11.0)
[2019-09-20 16:07] LABS: BACTERIA,URINE NEGATIVE /HPF
[2019-09-20] MEDS ORDERED: KETOROLAC 30 MG/ML VIAL IVP STA (16:13)
[2019-09-20] MEDS ORDERED: NS IV 1000 ML 1,000 ML IV ONE (16:13)
[2019-09-20] MEDS ORDERED: ONDANSETRON 4 MG/2 ML (SDV) Z0FRAN IVP ONE ×2 (16:15→17:00)
--- NOTE | 2019-09-20 16:16 | ED GU-Female ---
General Chief Complaint: Back Problems Stated Complaint: LOWER BACK PAIN/ABD PAIN/NAUSEA Nursing Triage Note: Pt amb to room #4 with c/o L lower back discomfort radiating to L lower abd. Pt reports onset of sympotms to be approx x1 wk ago with increase in severity within past x3 days. Pt reports nausa but denies emesis. Pt reports hx kidney stones. Denies fever or chills. A&OX4. Nursing Sepsis Screen: Possible Sepsis Risk Source: patient, other (significant other) Exam Limitations: no limitations History of Present Illness Date Seen by Provider: Sep 20, 2019 Time Seen by Provider: 16:15 Initial Comments 44-year-old female patient presents with complaints of left low back pain radiating into the left flank for approximately one week. She does complain of urinary frequency and dysuria. Patient reports increased symptoms or past 3 days. She does report nausea without vomiting. She does have a history of kidney stones. She denies taking any Tylenol or ibuprofen at home. She does state she has a couple of hydrocodone 7.5 mg tablets left over from her recent ventral hernia repair done by Dr. De La Garza approximately 2 weeks ago. Timing/Duration: week, getting worse Severity/Quality: aching, cramping, sharp Location: other (left low back) Radiation: left flank Activities at Onset: none Prior Genitourinary Problems: similar symptoms Modifying Factors: Worsens With Palpation Allergies and Home Medications Allergies Coded Allergies: meperidine (Verified Allergy, Severe, BREATHING DIFFICULTIES, 05/14/19) Patient has received Fentanyl in the past morphine (Verified Allergy, Severe, HALLUCINATIONS/BREATHING DIFFICULTIES, 05/14/19) Patient has received Lortab & Percocet in the past Home Medications Albuterol Sulfate 1 Puff Puff, 2 PUFF IH Q4H PRN for SHORTNESS OF BREATH, (Reported) 1 PUFF = 90 MCG Alprazolam 1 Mg Tablet, 1 MG PO BID, (Reported) Budesonide/Formoterol Fumarate 10.2 Gm Hfa.aer.ad, 2 PUFF IH BID PRN for SHORTNESS OF BREATH, (Reported) Hydrocodone Bit/Acetaminophen 1 Each Tablet, 1-2 TAB PO Q4H Prescribed by: YANET WILDE on 09/03/19 0830 Nitrofurantoin Monohyd/M-Cryst 100 Mg Capsule, 1 TAB PO BID Prescribed by: ANGELICA PALMA on 09/20/191801 Ondansetron 8 Mg Tab.rapdis, 8 MG PO Q6H PRN for NAUSEA/VOMITING Prescribed by: ANGELICA PALMA on 09/20/191801 Oxycodone HCl/Acetaminophen 1 Each Tablet, 1 EACH PO Q4H PRN for PAIN-MODERATE Prescribed by: ANGELICA PALMA on 09/20/191801 Pantoprazole Sodium 40 Mg Tablet.dr, 40 MG PO DAILY, (Reported) Phenazopyridine HCl 200 Mg Tablet, 1 TAB PO TID PRN for pain Prescribed by: ANGELICA PALMA on 09/20/191801 Patient Home Medication List Home Medication List Reviewed: Yes Review of Systems Review of Systems Constitutional: No chills, No diaphoresis, No fever, No malaise EENTM: no symptoms reported Respiratory: no symptoms reported Cardiovascular: no symptoms reported Gastrointestinal: No abdominal pain, No constipation, No diarrhea; loss of appetite, nausea; No vomiting, No other (denies bowel incontinence) Genitourinary: see HPI, dysuria, frequency, flank pain (left flank pain); denies hematuria, denies incontinence Musculoskeletal: see HPI, back pain; No joint pain Skin: no symptoms reported Psychiatric/Neurological: No Symptoms Reported All Other Systemes Reviewed Negative Unless Noted: Yes (Negative excepted noted.) Past Yimuiqm-Ntfmcs-Hlzzzy Hx Past Med/Social Hx: Reviewed Nursing Past Med/Soc Hx Patient Social History Alcohol Use: Regular Use Number of Drinks Today: 0 Alcohol Beverage of Choice: Whiskey, Vodka Recreational Drug Use: No Smoking Status: Current Everyday Smoker Type Used: Cigarettes 2nd Hand Smoke Exposure: Yes Recent Foreign Travel: No Contact w/Someone Who Travel: No Recent Infectious Disease Expo: No Recent Hopitalizations: No Immunizations Up To Date Tetanus Booster (TDap): More than 5yrs Seasonal Allergies Seasonal Allergies: Yes Past Medical History Surgeries: Yes (tummy tuck, liposuction, KIDNEY STONESx3, FOOT X2, TUMMY TUCK REPAIR,BLADD ) Bladder Surgery, Gallbladder, Hysterectomy, Orthopedic Respiratory: Yes Asthma Currently Using CPAP: No Currently Using BIPAP: No Cardiac: No Neurological: No Reproductive Disorders: No Female Reproductive Disorders: Menstrual Problems, Endometriosis, Ovarian Cyst 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 Sexually Transmitted Disease: No HIV/AIDS: No Genitourinary: Yes Kidney Stones, UTI-Chronic Gastrointestinal: Yes (small bowel resection in 09/02) Abdominal Hernia, Chronic Constipation Musculoskeletal: Yes Arthritis Endocrine: No HEENT: No Loss of Vision: Denies Hearing Impairment: Denies Cancer: No Psychosocial: Yes Anxiety, Depression Integumentary: No Blood Disorders: No Adverse Reaction/Blood Tranf: No (N/A) Family Medical History Reviewed Nursing Family Hx Alcoholism 19 MOTHER Cervical cancer Colon cancer 19 MOTHER Diabetes mellitus 19 FATHER Drug abuse G8 BROTHER FH: breast cancer 19 MOTHER Hypertension 19 MOTHER Thyroid disease G8 SISTER No Pertinent Family Hx Physical Exam Vital Signs Vital Signs - First Documented 09/20/19 09/20/19 15:06 18:33 Temp 35.9 Pulse 102 Resp 18 B/P (MAP) 137/93 (108) Pulse Ox 99 O2 Delivery Room Air Capillary Refill : Less Than 3 Seconds Height, Weight, BMI Height: 5'5.00" Weight: 243lbs. 9.0oz. 110.075012op; 40.00 BMI Method:Stated General Appearance: WD/WN, no apparent distress HEENT: PERRL/EOMI, pharynx normal Neck: supple, normal inspection Cardiovascular: normal peripheral pulses, regular rate, rhythm, no edema, no murmur Respiratory: lungs clear, normal breath sounds, no respiratory distress, no accessory muscle use Gastrointestinal: normal bowel sounds, soft, no organomegaly; No distended; guarding (left flank); No rebound; tenderness (left flank tenderness) Back: normal inspection, no vertebral tenderness; No CVA tenderness (R); CVA tenderness (L) Extremities: no pedal edema, normal capillary refill Neurologic/Psychiatric: alert, normal mood/affect, oriented x 3 Skin: normal color, warm/dry Progress/Results/Core Measures Suspected Sepsis Recent Fever Within 48 Hours: No Infection Criteria Present: Suspected New Infection New/Unexplained Altered Menta: No Sepsis Screen: Possible Sepsis Risk SIRS Temperature: Pulse: 102 Respiratory Rate: 18 Laboratory Tests 09/20/19 15:29: White Blood Count 6.3 Blood Pressure 137 /93 Mean: 108 Laboratory Tests 09/20/19 15:29: Creatinine 0.92, Platelet Count 453H, Total Bilirubin 0.4 Results/Orders Lab Results Laboratory Tests Test 09/20/19 15:29 09/20/19 15:50 Range/Units White Blood Count 6.3 4.3-11.0 10^3/uL Red Blood Count 4.35 4.35-5.85 10^6/uL Hemoglobin 12.9 11.5-16.0 G/DL Hematocrit 41 35-52 % Mean Corpuscular Volume 95 80-99 FL Mean Corpuscular Hemoglobin 30 25-34 PG Mean Corpuscular Hemoglobin Concent 31 L 32-36 G/DL Red Cell Distribution Width 18.0 H 10.0-14.5 % Platelet Count 453 H 130-400 10^3/uL Mean Platelet Volume 8.9 7.4-10.4 FL Neutrophils (%) (Auto) 65 42-75 % Lymphocytes (%) (Auto) 22 12-44 % Monocytes (%) (Auto) 8 0-12 % Eosinophils (%) (Auto) 5 0-10 % Basophils (%) (Auto) 1 0-10 % Neutrophils # (Auto) 4.1 1.8-7.8 X 10^3 Lymphocytes # (Auto) 1.4 1.0-4.0 X 10^3 Monocytes # (Auto) 0.5 0.0-1.0 X 10^3 Eosinophils # (Auto) 0.3 0.0-0.3 10^3/uL Basophils # (Auto) 0.0 0.0-0.1 10^3/uL Sodium Level 140 135-145 MMOL/L Potassium Level 3.9 3.6-5.0 MMOL/L Chloride Level 107 98-107 MMOL/L Carbon Dioxide Level 21 21-32 MMOL/L Anion Gap 12 5-14 MMOL/L Blood Urea Nitrogen 15 7-18 MG/DL Creatinine 0.92 0.60-1.30 MG/DL Estimat Glomerular Filtration Rate > 60 BUN/Creatinine Ratio 16 Glucose Level 91 70-105 MG/DL Calcium Level 9.2 8.5-10.1 MG/DL Corrected Calcium 9.0 8.5-10.1 MG/DL Total Bilirubin 0.4 0.1-1.0 MG/DL Aspartate Amino Transf (AST/SGOT) 16 5-34 U/L Alanine Aminotransferase (ALT/SGPT) 15 0-55 U/L Alkaline Phosphatase 99 40-136 U/L C-Reactive Protein High Sensitivity 0.90 H 0.00-0.50 MG/DL Total Protein 7.5 6.4-8.2 GM/DL Albumin 4.2 3.2-4.5 GM/DL Urine Color YELLOW Urine Clarity CLEAR Urine pH 5.5 5-9 Urine Specific [place] >=1.030 1.016-1.022 Urine Protein NEGATIVE NEGATIVE Urine Glucose (UA) NEGATIVE NEGATIVE Urine Ketones NEGATIVE NEGATIVE Urine Nitrite NEGATIVE NEGATIVE Urine Bilirubin NEGATIVE NEGATIVE Urine Urobilinogen 0.2 < = 1.0 MG/DL Urine Leukocyte Esterase NEGATIVE NEGATIVE Urine RBC (Auto) 2+ H NEGATIVE Urine RBC 10-25 H /HPF Urine WBC NONE /HPF Urine Squamous Epithelial Cells 5-10 /HPF Urine Crystals NONE /LPF Urine Bacteria NEGATIVE /HPF Urine Casts NONE /LPF Urine Mucus SMALL H /LPF Urine Culture Indicated NO My Orders Orders - ANGELICA PALMA Cbc With Automated Diff (09/20/19 15:33) Comprehensive Metabolic Panel (09/20/19 15:33) Hs C Reactive Protein (09/20/19 15:33) Ua Culture If Indicated (09/20/19 15:33) Ed Iv/Invasive Line Start (09/20/19 15:33) Urine Bedside (09/20/19 15:33) Ct Abd/Pelvis Wo(Kidney Stone) (09/20/19 16:13) Ns Iv 1000 Ml (Sodium Chloride 0.9%) (09/20/19 16:13) Ondansetron Injection (Zofran Injectio (09/20/19 16:15) Ketorolac Injection (Toradol Injection) (09/20/19 16:13) Ondansetron Injection (Zofran Injectio (09/20/19 17:00) Fentanyl Injection (Sublimaze Injection (09/20/19 16:51) Oxycodone Immediate Rel Tablet (Oxyir Ta (09/20/19 17:45) Rx-Oxycodone/Apap 5-325 Mg (Rx-Percocet (09/20/19 18:00) Rx-Ondansetron Po (Rx-Zofran Po) (09/20/19 17:48) Nitrofurantoin Capsule,Macro (Macrobid C (09/20/19 18:00) Phenazopyridine Tablet (Pyridium Tablet) (09/20/19 18:00) Abdomen/Kub 1view (09/20/19 17:57) Medications Given in ED Current Medications Medications Dose Ordered Sig/Domenico Route Start Time Stop Time Status Last Admin Dose Admin Nitrofurantoin Macrocrystals 100 mg ONCE ONCE PO 09/20/19 18:00 09/20/19 18:01 DC 09/20/19 18:06 100 MG Ondansetron HCl 4 mg ONCE ONCE IVP 09/20/19 16:15 09/20/19 16:16 DC 09/20/19 16:20 4 MG Ondansetron HCl 4 mg ONCE ONCE IVP 09/20/19 17:00 09/20/19 17:01 DC 09/20/19 16:58 4 MG Oxycodone/ Acetaminophen 1 ea Q6H PRN PO 09/20/19 18:00 09/20/19 18:33 DC 09/20/19 18:06 1 EA Phenazopyridine HCl 200 mg ONCE ONCE PO 09/20/19 18:00 09/20/19 18:01 DC 09/20/19 18:06 200 MG Sodium Chloride 1,000 ml @ 0 mls/hr Q0M ONCE IV 09/20/19 16:13 09/20/19 16:15 DC 09/20/19 16:20 0 MLS/HR Vital Signs/I&O 09/20/19 09/20/19 15:06 18:33 Temp 35.9 35.9 Pulse 102 81 Resp 18 17 B/P (MAP) 137/93 (108) 135/75 (108) Pulse Ox 99 99 O2 Delivery Room Air Capillary Refill : Less Than 3 Seconds Blood Pressure Mean: 108 Diagnostic Imaging Diagonstic Imaging: CT Plain Films/CT/US/NM/MRI: abdomen, pelvis Comments Date of Exam:09/20/19 CT ABD/PELVIS WO(KIDNEY STONE) PROCEDURE: CT urinary tract, rule out kidney stone. TECHNIQUE: Multiple contiguous axial images were obtained through the abdomen and pelvis without the use of intravenous contrast. Auto Exposure Controls were utilized during the CT exam to meet ALARA standards for radiation dose reduction. INDICATION: Left flank pain. COMPARISON: Prior examination from 12/29/2018. FINDINGS: The heart size is normal. The lung bases are clear. Liver is normal in size. There is no biliary ductal dilatation. Spleen is normal. Pancreas and adrenal glands are unremarkable. Right kidney is normal. There is left hydronephrosis and hydroureter secondary to a 6 mm stone in the proximal ureter just below the left UPJ. The aorta is nonaneurysmal. Bowel gas pattern is nonspecific. There is a focal fluid collection in the subcutaneous fat of the anterior abdominal wall measuring approximately 6 cm. This has the appearance of a seroma although abscess certainly cannot be excluded. There is no free intraperitoneal air. There is mild diverticular disease without evidence of diverticulitis. There is no pelvic mass or adenopathy. There are mild degenerative changes in the spine. IMPRESSION: 1. Left hydronephrosis, secondary to a 6 mm stone in the proximal ureter just below the left UPJ. 2. Focal fluid collection within subcutaneous fat of the anterior abdominal wall suspect for either seroma or possibly abscess. Recommend clinical correlation. 3. Diverticular disease without evidence of diverticulitis. 4. No other acute abnormality in the abdomen or pelvis. Dictated on workstation # [id number] Reviewed: Reviewed by Me (radiology report reviewed by me) Diagonstic Imaging: Xray Plain Films/CT/US/NM/MRI: abdomen Comments Date of Exam:09/20/19 ABDOMEN/KUB 1VIEW INDICATION: Left kidney stone FINDINGS: Supine view of the abdomen demonstrates 7 mm calculi overlying the inferior aspect of the left kidney. Bowel anastomosis seen in the right side of the abdomen. Phleboliths are present in the pelvis. The bowel gas pattern appears normal. IMPRESSION: There is 7 mm calculi overlying the left kidney. Dictated by: Dictated on workstation # [id number] Reviewed: Reviewed by Me (radiology report reviewed by me) Departure Communication (Admissions) Patient seen and evaluated. Initial labs and CT abdomen/pelvis obtained showing a 6 mm left UPJ kidney stone. Patient was given 1 L normal saline, 8 mg of Zofran, 30 mg Toradol, 50 g of fentanyl with mild improvement in symptoms. Patient was given a take-home pack of oxycodone and Zofran as well as a dose of Macrobid and Pyridium in the emergency department prior to discharge. Patient was instructed to contact Dr. Lin tomorrow morning to schedule an appointment for recheck. KUB was obtained prior to discharge. ED visit uneventful. Impression Primary Impression: Left ureteral calculus Disposition: HOME, SELF-CARE Condition: Improved Departure-Patient Inst. Decision time for Depature: 17:58 Referrals: TREY SOLOMON MD (PCP) Primary Care Physician Patient Instructions: How to Strain Your Urine, Kidney Stones (DC) Add. Discharge Instructions: All discharge instructions reviewed with patient and/or family. Voiced understanding. Medications as instructed. Do NOT take the oxycodone with your hydrocodone that you have at home. Stay well hydrated. Caffeinated beverages may help to flush the stone down the ureters. Strain all urines. Follow-up with Dr. Lin this week for recheck, call first thing Saturday morning for appointment time. Return to the emergency department for worsened symptoms, fever, vomiting, inability to urinate, visible blood in the urine, or any other concerns. Scripts Nitrofurantoin Monohyd/M-Cryst (Macrobid 100 mg Capsule) 100 Mg Capsule 1 TAB PO BID, #14 CAP 0 Refills Prov: ANGELICA PALMA 09/20/19 Ondansetron (Ondansetron Odt) 8 Mg Tab.rapdis 8 MG PO Q6H PRN for NAUSEA/VOMITING, #10 TAB 0 Refills Prov: ANGELICA PALMA 09/20/19 Phenazopyridine HCl (Pyridium) 200 Mg Tablet 1 TAB PO TID PRN for pain, #14 TAB 0 Refills Prov: ANGELICA PALMA 09/20/19 Oxycodone HCl/Acetaminophen (Oxycodone-Acetaminophen 5-325) 1 Each Tablet 1 EACH PO Q4H PRN for PAIN-MODERATE MDD 6, #10 TAB 0 Refills Prov: ANGELICA PALMA 09/20/19 ANGELICA PALMA Sep 20, 2019 16:16
[2019-09-20 16:37] LABS: ALANINE AMINOTRANSFERASE 15 U/L (0-55); ALBUMIN 4.2 GM/DL (3.2-4.5); ALKALINE PHOSPHATASE 99 U/L (40-136); BILIRUBIN,TOTAL 0.4 MG/DL (0.1-1.0); BUN/CREATININE RATIO 16; CALCIUM 9.2 MG/DL (8.5-10.1); CARBON DIOXIDE 21 MMOL/L (21-32); CHLORIDE 107 MMOL/L (98-107); CREATININE SERUM 0.92 MG/DL (0.60-1.30); GFR ESTIMATED > 60; GLUCOSE 91 MG/DL (70-105); POTASSIUM 3.9 MMOL/L (3.6-5.0); SODIUM 140 MMOL/L (135-145); TOTAL PROTEIN 7.5 GM/DL (6.4-8.2)
[2019-09-20] MEDS ORDERED: fentaNYL INJECTION 100 MCG/2 ML AMP IVP STA (16:51)
--- NOTE | 2019-09-20 17:04 | Diagnostic Imaging Report ---
PROCEDURE: CT urinary tract, rule out kidney stone. TECHNIQUE: Multiple contiguous axial images were obtained through the abdomen and pelvis without the use of intravenous contrast. Auto Exposure Controls were utilized during the CT exam to meet ALARA standards for radiation dose reduction. INDICATION: Left flank pain. COMPARISON: Prior examination from 12/29/2018. FINDINGS: The heart size is normal. The lung bases are clear. Liver is normal in size. There is no biliary ductal dilatation. Spleen is normal. Pancreas and adrenal glands are unremarkable. Right kidney is normal. There is left hydronephrosis and hydroureter secondary to a 6 mm stone in the proximal ureter just below the left UPJ. The aorta is nonaneurysmal. Bowel gas pattern is nonspecific. There is a focal fluid collection in the subcutaneous fat of the anterior abdominal wall measuring approximately 6 cm. This has the appearance of a seroma although abscess certainly cannot be excluded. There is no free intraperitoneal air. There is mild diverticular disease without evidence of diverticulitis. There is no pelvic mass or adenopathy. There are mild degenerative changes in the spine. IMPRESSION: 1. Left hydronephrosis, secondary to a 6 mm stone in the proximal ureter just below the left UPJ. 2. Focal fluid collection within subcutaneous fat of the anterior abdominal wall suspect for either seroma or possibly abscess. Recommend clinical correlation. 3. Diverticular disease without evidence of diverticulitis. 4. No other acute abnormality in the abdomen or pelvis. Dictated by: Dictated on workstation # [id number]
[2019-09-20] MEDS ORDERED: RX-ONDANSETRON 4 MG ODT (ZOFRAN) PPK #4 PO STA (17:48)
[2019-09-20] MEDS ORDERED: PHENAZOPYRIDINE 100 MG (PYRIDIUM) TABLET PO ONE (18:00)
[2019-09-20] MEDS ORDERED: RX-OXYCODONE/APAP 5-325 MG #4 TAB PK PO PRN (18:00)
[2019-09-20] MEDS ORDERED: NITROFURANTOIN 100 MG (MACROBID) CAPSULE PO ONE (18:00)
[2019-09-20] MEDS ORDERED: ONDA8TAB13 PO (18:02)
[2019-09-20] MEDS ORDERED: PHEN-640 PO (18:02)
[2019-09-20] MEDS ORDERED: OXYC-471 PO (18:02)
[2019-09-20] MEDS ORDERED: NITR-65 PO (18:02)
[2019-09-20 18:33] VITALS: BP 135/75
--- NOTE | 2019-09-20 18:33 | Diagnostic Imaging Report ---
INDICATION: Left kidney stone FINDINGS: Supine view of the abdomen demonstrates 7 mm calculi overlying the inferior aspect of the left kidney. Bowel anastomosis seen in the right side of the abdomen. Phleboliths are present in the pelvis. The bowel gas pattern appears normal. IMPRESSION: There is 7 mm calculi overlying the left kidney. Dictated by: Dictated on workstation # [id number]
== END 2019-09-20 18:33 | disposition home or self-care (01) ==
LOC: EDUNIT# 14:58 → ER 14:59
DX: N13.2 Hydronephrosis with renal and ureteral calculous obstruction (principal); J45.909 Unspecified asthma, uncomplicated; F41.9 Anxiety disorder, unspecified; F32.9 Major depressive disorder, single episode, unspecified; F17.210 Nicotine dependence, cigarettes, uncomplicated; Z88.5 Allergy status to narcotic agent; Z80.0 Family history of malignant neoplasm of digestive organs; Z80.3 Family history of malignant neoplasm of breast; Z80.49 Family history of malignant neoplasm of other genital organs
CPT/HCPCS: 36415; 74018; 74176; 80053; 81000; 84703; 85025; 86141

== ENCOUNTER 2019-09-21 16:00 | Outpatient (CLI) | payer MEDICAID ==
[~2019-09-21] VITALS: Ht 165.1 cm; Wt 111.4 kg
[~2019-09-21 16:00] MED LIST changes: -TMSL.4C PO
[2019-09-22] MEDS ORDERED: NITR-65 PO (08:44)
[2019-09-22] MEDS ORDERED: TMSL.4C PO (08:44)
== END 2019-09-21 17:06 | disposition home or self-care (01) ==
LOC: PREOP 16:00
PROVIDERS: ATTEND Urology
DX: Z01.818 Encounter for other preprocedural examination (principal)

== ENCOUNTER → 2019-09-21 | Outpatient (CLI) | payer MEDICAID ==
[~2019-09-21] MED LIST changes: +NITR-65 PO; +ONDA8TAB13 PO; +OXYC-471 PO; +PHEN-640 PO; +TMSL.4C PO
--- NOTE | 2019-09-21 14:42 | Diagnostic Imaging Report ---
INDICATION: Left nephrolithiasis. FINDINGS: There is a 7 mm calculus projecting over the left ureter just above the L4 transverse process. This has progressed approximately 1 cm compared to the previous day. IMPRESSION: Slight interval progression of the mid left ureteral calculus. Dictated by: Dictated on workstation # [id number]
== END ==
LOC: RAD 13:48
PROVIDERS: ATTEND Urology
DX: N20.2 Calculus of kidney with calculus of ureter (principal)
CPT/HCPCS: 74018

== ENCOUNTER 2019-09-22 06:36 | Day surgery (SDC) | payer MEDICAID ==
[~2019-09-22] VITALS: Ht 165.1 cm; Wt 111.4 kg
[2019-09-22] VITALS (9 sets, daily range): BP systolic 106–141; BP diastolic 67–95
[2019-09-22] MEDS ORDERED: cefTRIAXone FOR IV USE 1,000 MG in WATER (STERILE) FOR INJECTION 10 ML IV ONE (06:45)
[2019-09-22] MEDS ORDERED: LACTATED RINGERS 1,000 ML IV PRN (06:54)
[2019-09-22] MEDS ORDERED: MIDAZOLAM 2 MG/2 ML (VERSED) VIAL ONE (07:00)
[2019-09-22] MEDS ORDERED: DEXAMETHASONE 10 MG/ML (DECADRON) 1 ML VIAL ONE (07:00)
[2019-09-22] MEDS ORDERED: LIDOCAINE PF 2% 5 ML (XYLOCAINE) VIAL ONE (07:00)
[2019-09-22] MEDS ORDERED: proPOfol 200 MG/20 ML (DIPRIVAN) VIAL IV ONE (07:00)
[2019-09-22] MEDS ORDERED: fentaNYL INJECTION 100 MCG/2 ML AMP ONE (07:00)
[2019-09-22] MEDS ORDERED: ONDANSETRON 4 MG/2 ML (SDV) Z0FRAN ONE (07:00)
[2019-09-22] MEDS ORDERED: ROCURONIUM 10 MG/ML 5 ML SYRINGE IV ONE ×2 (07:05→08:15)
[2019-09-22] MEDS ORDERED: SEVOFLURANE (ULTANE) 15 ML INHAL SOLN ONE (07:05)
--- NOTE | 2019-09-22 07:05 | Progress Note-Pre Operative ---
Pre-Operative Progress Note H&P Reviewed The H&P was reviewed, patient examined and no changes noted. Date Seen by Provider: Sep 22, 2019 Time Seen by Provider: 07:05 Date H&P Reviewed: Sep 22, 2019 Time H&P Reviewed: 07:05 Pre-Operative Diagnosis: LT PROXIMAL STONE JOSI BOLTON MD Sep 22, 2019 07:05
[2019-09-22] MEDS ORDERED: LIDOCAINE 1% INJ 20 ML 20 ML VIAL ONE ×2 (07:10→07:11)
[2019-09-22] MEDS ORDERED: CATHETER FLUSH 10 ML SYR IV PRN (07:15)
[2019-09-22] MEDS ORDERED: FUROSEMIDE 40 MG/4 ML INJ (LASIX) ONE (07:49)
[2019-09-22] MEDS ORDERED: KETOROLAC 30 MG/ML VIAL ONE (07:49)
--- NOTE | 2019-09-22 08:09 | Progress Note-Post Operative ---
Post-Operative Progess Note Surgeon (s)/Well Logging Captain Mud Analysis (s) Surgeon JOSI BOLTON MD Well Logging Captain Mud Analysis: NONE Pre-Operative Diagnosis LT PROXIMAL STONE Post-Operative Diagnosis SAME Procedure & Operative Findings Date of Procedure 09/22/19 Procedure Performed/Findings LT ESWL Anesthesia Type GENERAL Estimated Blood Loss Estimated blood loss (mL): NONE Specimens/Packing Specimens Removed NONE Packing: NONE JOSI BOLTON MD Sep 22, 2019 08:09
--- NOTE | 2019-09-22 08:12 | Discharge Inst-Urology ---
Discharge Inst-Urology Patient Instructions/Follow Up Plan/Assessment/Instructions Please make appointment to been seen in office in 2 weeks. Increase oral fluids for 48 hours and then as needed. Diet and Activity as tolerated. If questions or concerns contact your physician Or seek help at emergency department. JOSI BOLTON MD Sep 22, 2019 08:12
--- NOTE | 2019-09-22 08:12 | Discharge Inst-Urology ---
Discharge Inst-Urology Reconcile Patient Problems Problems Reviewed?: Yes Final Diagnosis LT PROXIMAL URETERAL STONE Patient Instructions/Follow Up Plan/Assessment/Instructions Please make appointment to been seen in office Wednesday 10/04, KUB prior to it KUB on way home Post ESWL instructions Increase oral fluids for 48 hours and then as needed. Diet and Activity as tolerated. If questions or concerns contact your physician Or seek help at emergency department. JOSI BOLTON MD Sep 22, 2019 08:12
[2019-09-22] MEDS ORDERED: GLYCOPYRROLATE 0.2 MG/ML (ROBINUL) 2 ML VIAL ONE (08:15)
[2019-09-22] MEDS ORDERED: NEOSTIGMINE 3 MG/3 ML VIAL ONE (08:15)
--- NOTE | 2019-09-22 08:18 | Diagnostic Imaging Report ---
EXAMINATION: Abdominal radiographs, single supine view, 2 images. DATE: September 22, 2019. CLINICAL INDICATION: 44-year-old female, ureteral stone. COMPARISON: September 21, 2019. CT abdomen pelvis September 20, 2019. COMMENTS: There is a calcification at the level of the left mid ureter at the level of the L4 vertebral body measuring 6 mm in size which is unchanged since comparison radiograph. There are several small pelvic calcifications. There is no identified abnormally distended gas-filled segments of bowel. IMPRESSION: Stable 6 mm calcification likely correlating with left mid ureteral stone seen on prior CT imaging. Dictated by: Dictated on workstation # [id number]
[2019-09-22] MEDS ORDERED: RT-ALBUTEROL SULF 2.5 MG/3 ML PRE-MIX VIAL ONE (08:30)
[2019-09-22] MEDS ORDERED: NITR-65 PO (08:44)
[2019-09-22] MEDS ORDERED: TMSL.4C PO (08:44)
[2019-09-22] MEDS ORDERED: RT-ALBUTEROL SULF 2.5 MG/3 ML PRE-MIX VIAL INH ONE (08:45)
[2019-09-22] MEDS ORDERED: ONDANSETRON 4 MG/2 ML (SDV) Z0FRAN IVP PRN (08:45)
[2019-09-22] MEDS ORDERED: fentaNYL INJECTION 100 MCG/2 ML AMP IVP ONE (08:45)
[2019-09-22] MEDS ORDERED: PROMETHAZINE INJ 25 MG/ML (PHENERGAN) AMP IVP ONE (08:45)
--- NOTE | 2019-09-22 09:05 | NUR ---
PATIENT NOT ALL THE WAY BACK TO ROOM AND REFUSES TO USE BEDPAN AND JUMPS OUT OF BED AND GOES INTO BATHROOM AND REFUSES TO USE HAT AND VOIDS IN TOILET. AT 0920 PATIENT VOIDS AGAIN REFUSING TO USE HAT AGAIN. PATIENT EDUCATED THAT HAT IS NEEDED TO SEE IF PIECES OF STONES ARE BEING CAUGHT WHEN STRAINED
--- NOTE | 2019-09-22 09:16 | Anesthesia-General Post-Op ---
General Patient Condition Mental Status/LOC: Same as Preop Cardiovascular: Satisfactory Nausea/Vomiting: Absent Respiratory: Satisfactory Pain: Controlled Complications: Absent Post Op Complications Complications None Follow Up Care/Instructions Patient Instructions None needed. Anesthesia/Patient Condition Patient Condition Patient is doing well, no complaints, stable vital signs, no apparent adverse anesthesia problems. No complications reported per nursing. BRANDON RIOS CRNA Sep 22, 2019 09:16
--- NOTE | 2019-09-22 11:38 | Diagnostic Imaging Report ---
INDICATION: Nephrolithiasis, post extracorporeal shockwave lithotripsy. TECHNIQUE: Single supine view of the abdomen 10:48 AM CORRELATION STUDY: 09/22/2019 FINDINGS: Previous imaging demonstrates 6-7 mm calcification over the tip left transverse process. At follow-up, there are additional fragmented stones near the level of the L3-L4 transverse process. This likely reflects fragmentation of the previously demonstrated stone. Additional calcification of the hemipelvis appear unchanged. Large amount of overlying bowel gas and stool obscures detail. IMPRESSION: 1. There has been development of a likely fragmentation of the previously noted 7 mm calcification left ureter. Several calcifications are noted in this region on follow-up. Dictated by: Dictated on workstation # [id number]
--- NOTE | 2019-09-22 12:54 | OPERATIVE REPORT ---
DATE OF SERVICE: 09/22/2019 PREOPERATIVE DIAGNOSIS: Left proximal ureteral stone. POSTOPERATIVE DIAGNOSIS: Left proximal ureteral stone. OPERATION PERFORMED: Left ESWL. SURGEON: Marquis Bolton MD ANESTHESIA: General. COMPLICATIONS: None. DESCRIPTION OF PROCEDURE: Under satisfactory general anesthesia, the patient in supine position on the ESWL table, the left proximal ureteral stone was localized. Shocks were delivered at kV of 6. Total of 2000 shocks completely fragmented the stone, which was not visualized anymore. The patient received 30 mg of Toradol and 40 mg of Lasix at the end of the procedure IV. She tolerated the procedure and anesthesia well and was sent to recovery room in stable condition. Job ID: [id number] DocumentID: [id number] Dictated Date: 09/22/2019 08:25:34 Jewel Bearing Grinder Date: 09/22/2019 12:52:33 Dictated By: MARQUIS BOLTON MD
== END 2019-09-22 11:10 | disposition home or self-care (01) ==
LOC: SDC 06:36
PROVIDERS: ATTEND Urology
DX: N20.1 Calculus of ureter (principal); Z11.2 Encounter for screening for other bacterial diseases; K21.9 Gastro-esophageal reflux disease without esophagitis; J45.909 Unspecified asthma, uncomplicated; F17.210 Nicotine dependence, cigarettes, uncomplicated
CPT/HCPCS: 74018; 87081

== ENCOUNTER → 2021-10-26 | Outpatient (CLI) | payer MEDICAID ==
[~2021-10-26] MED LIST changes: -FLUO20CA46 PO; +FLUO20CA48 PO; -OXYC-471 PO; +OXYC1TAB11 PO; -PANT40TA3 PO; +PANT40TA52 PO; -SULF1TAB35 PO; +SULF1TAB38 PO; +TMSL.4C PO
[2021-10-26 13:01] LABS: BASOPHILS % (AUTO) 1 % (0-10); EOSINOPHILS # (AUTO) 0.3 10^3/uL (0.0-0.3); EOSINOPHILS % (AUTO) 5 % (0-10); HEMATOCRIT 46 % (35-52); HEMOGLOBIN 14.9 g/dL (11.5-16.0); LYMPHOCYTES % (AUTO) 18 % (12-44); MEAN CORPUSCULAR HEMOGLOBIN 31 pg (25-34); MEAN CORPUSCULAR HGB CONC 32 g/dL (32-36); MEAN CORPUSCULAR VOLUME 98 fL (80-99); MEAN PLATELET VOLUME 9.8 fL (9.0-12.2); MONOCYTES # (AUTO) 0.5 10^3/uL (0.0-1.0); MONOCYTES % (AUTO) 8 % (0-12); NEUTROPHILS # (AUTO) 4.1 10^3/uL (1.8-7.8); NEUTROPHILS % (AUTO) 69 % (42-75); PLATELET COUNT 334 10^3/uL (130-400); WHITE BLOOD COUNT 5.9 10^3/uL (4.3-11.0)
[2021-10-26 13:10] LABS: ALBUMIN 4.2 GM/DL (3.2-4.5); POTASSIUM 3.6 MMOL/L (3.6-5.0)
[2021-10-26 13:11] LABS: CALCIUM 9.4 MG/DL (8.5-10.1)
[2021-10-26 13:14] LABS: BILIRUBIN,TOTAL 0.9 MG/DL (0.1-1.0)
[2021-10-26 13:16] LABS: CREATININE SERUM 0.64 MG/DL (0.60-1.30)
== END ==
LOC: LAB 12:20
PROVIDERS: ATTEND Family Medicine
DX: R53.83 Other fatigue (principal)
CPT/HCPCS: 36415; 80053; 82607; 85025

== ENCOUNTER → 2021-10-26 | Outpatient (CLI) | payer MEDICAID ==
--- NOTE | 2021-10-26 14:06 | Diagnostic Imaging Report ---
INDICATION: Routine screening. COMPARISON: 08/07/2018. TECHNIQUE: 2D and 3D bilateral screening mammography was performed with CAD. FINDINGS: Scattered fibroglandular densities are identified bilaterally. The overall parenchymal pattern is stable. No new mass or malignant-appearing microcalcifications are seen. The axillae are unremarkable. IMPRESSION: No mammographic features suspicious for malignancy are identified. ACR BI-RADS Category 1: Negative. Result letter will be mailed to the patient. Note: At least 10% of breast cancer is not imaged by mammography. Dictated by: Dictated on workstation # [id number]
== END ==
LOC: RAD 12:45
PROVIDERS: ATTEND Obstetrics & Gynecology
DX: Z12.31 Encounter for screening mammogram for malignant neoplasm of breast (principal)
CPT/HCPCS: 77063; 77067

== ENCOUNTER 2021-12-14 05:31 | Outpatient (CLI) | payer MEDICAID ==
[~2021-12-14] VITALS: Ht 165 cm; Wt 98.0 kg
[2021-12-14] MEDS ORDERED: IBUP-1780 PO (14:10)
== END 2021-12-14 14:15 | disposition home or self-care (01) ==
LOC: PREOP 05:31
PROVIDERS: ATTEND Surgery
DX: Z01.818 Encounter for other preprocedural examination (principal)

== ENCOUNTER 2021-12-21 09:11 | Day surgery (SDC) | payer MEDICAID ==
[2021-12-21] VITALS (8 sets, daily range): BP systolic 108–143; BP diastolic 64–85
[~2021-12-21] VITALS: Ht 165.1 cm; Wt 95.1 kg
--- NOTE | 2021-12-21 09:13 | HISTORY AND PHYSICAL ---
DATE OF SERVICE: ATTENDING PRIMARY CARE PHYSICIAN: Dr. Ganga Cervantes. HISTORY OF PRESENT ILLNESS: The patient is a 46-year-old female known to us. She was initially referred over to us for nausea and vomiting and found to have gallstones and underwent a laparoscopic cholecystectomy in 2014. On 08/19/2018, an intraoperative consultation was made. In the process of undergoing total hysterectomy and pubovaginal sling placement for uterine fibroids as well as menorrhea, surgeon had noted after insufflation and trocar placement, it appeared that the trocar had entered the small bowel. We then proceeded with a mini laparotomy, lysis of adhesions as well as a small bowel resection and anastomosis. On 09/03/2019, she underwent a recurrent ventral abdominal incisional hernia repair with mesh, the size of the defect was approximately 4 cm in size. She does have risk factors including at the time, weighing approximately 260.8 pounds and smoking. Since that time, she has lost weight and did have a laparoscopic gastric sleeve resection on 08/05/2021. Her weight is now down to 215 pounds. She reports that she has had recurrence of the hernia, which has grown larger in size and become symptomatic. Upon examination, reducible recurrent ventral abdominal incisional hernias identified. She is otherwise eating well and having normal bowel movements. PAST MEDICAL HISTORY: Nephrolithiasis, uterine fibroids, gastroesophageal reflux disease, anxiety, depression. PAST SURGICAL HISTORY: Extra shockwave lithotripsy x3, left foot ORIF 2006, removal of left foot hardware 2006, abdominoplasty liposuction 2008, cervical conization 1999, laparoscopic cholecystectomy 2014, laparoscopic total hysterectomy and bladder sling 04/2019, lysis of adhesions, small bowel resection and anastomosis 08/2018, repair of incarcerated recurrent ventral abdominal incisional hernia repair with mesh 08/2019. SOCIAL HISTORY: Positive for smoke 30 pack years. Negative alcohol. FAMILY HISTORY: Mother, breast cancer, ovarian cancer, diabetes, hypertension. Uncle, lung cancer. Sister, ovarian cancer. ALLERGIES: MORPHINE, DEMEROL. MEDICATIONS: Alprazolam 1 mg b.i.d., fluoxetine 20 mg daily, albuterol inhaler p.r.n., Protonix 40 mg daily. SOCIAL HISTORY: Positive smoke 30 pack years. Negative alcohol. VITAL SIGNS: Blood pressure 110/76, current weight 215.5 pounds at 5 feet 5 inches. REVIEW OF SYSTEMS: Well-nourished female, in no acute distress. She is not experiencing any shortness of breath or difficulty breathing. No chest pain, palpitations or diaphoresis. No nausea or vomiting. No diarrhea or constipation. No fever or chills. No recent inadvertent weight loss. All other review of systems negative. PHYSICAL EXAMINATION: CHEST: A few scattered wheezes bilaterally. HEART: Regular, no murmurs. EXTREMITIES: No lower extremity edema, negative Homans sign. HEENT: No scleral icterus. NECK: No cervical lymphadenopathy. ABDOMEN: Soft, nondistended. There is a recurrent ventral abdominal incisional hernia, which is reducible and tender to palpation. SKIN: Warm, dry. ASSESSMENT AND PLAN: A 46-year-old female with recurrent reducible ventral abdominal incisional hernia. Again, the natural history of hernias were explained to the patient including risk of incarceration and strangulation. We will recommend smoking cessation before surgery, which is a known risk factor for reoccurrence. She has lost a significant amount of weight since her last surgery, which should also help. We will schedule her for a recurrent ventral abdominal incisional hernia repair with mesh. Job ID: [id number] DocumentID: [id number] Dictated Date: 12/12/2021 16:30:04 Line Haul Driver Date: 12/12/2021 18:00:51 Dictated By: JULIET CARREON MD
[2021-12-21] MEDS: LACTATED RINGERS 1,000 ML IV PRN ×3 (09:30→12:55)
--- NOTE | 2021-12-21 09:33 | Progress Note-Pre Operative ---
Pre-Operative Progress Note H&P Reviewed The H&P was reviewed, patient examined and no changes noted. Date Seen by Provider: Dec 21, 2021 Time Seen by Provider: 09:30 Date H&P Reviewed: Dec 21, 2021 Time H&P Reviewed: 09:25 Pre-Operative Diagnosis: Symptomatic incisional hernia YANET WILDE APRN Dec 21, 2021 09:33
[2021-12-21] MEDS ORDERED: HYDR-3817 PO (09:35)
--- NOTE | 2021-12-21 09:36 | Discharge Inst-Surgical ---
D/C Lap Instructions-KIDO Reconcile Patient Problems Problems Reviewed?: Yes New, Converted, or Re-Newed RX: RX on Chart Follow Up Appt in 2 weeks Activity as tolerated No driving for 24 hours No driving while on pain medications Incentive Spirometry use every 2 hours while awake Regular Diet Symptoms to Report: Fever over 101 degree F, Nausea/Vomiting Infection Signs and Symptoms to report: Increased redness, Foul odor of wound, Increased drainage Bathing instructions: May shower Operative Area Clean/Dry; Keep incision clean/dry If any problems/questions: Contact your physician or go to Emergency Room YANET WILDE APRN Dec 21, 2021 09:36
[2021-12-21] MEDS ORDERED: fentaNYL INJ 100 MCG/2 ML AMP IVP PRN (09:45)
[2021-12-21] MEDS ORDERED: ACETAMINOPHEN 325 MG TABLET PO PRN (09:45)
[2021-12-21] MEDS ORDERED: HYDROcodone/APAP 5 MG/325 MG (LORTAB) TAB PO ONE (09:45)
[2021-12-21] MEDS ORDERED: ceFAZolin 2 GM IV Premixed 50 ML ONE (09:52)
[2021-12-21] MEDS ORDERED: ceFAZolin 2 GM IV Premixed 50 ML IV ONE (10:00)
[2021-12-21] MEDS ORDERED: MIDAZOLAM 2 MG/2 ML (VERSED) VIAL IV ONE (10:30)
[2021-12-21] MEDS ORDERED: LIDOCAINE/EPI 2% 1:200,00 (XYLOCAINE) 10 ML VIAL ONE (11:22)
[2021-12-21] MEDS ORDERED: fentaNYL INJ 100 MCG/2 ML AMP ONE ×4 (11:34→14:14)
[2021-12-21] MEDS ORDERED: MIDAZOLAM 2 MG/2 ML (VERSED) VIAL ONE (11:34)
[2021-12-21 11:59] LABS: BASOPHILS % (AUTO) 1 % (0-10); EOSINOPHILS # (AUTO) 0.2 10^3/uL (0.0-0.3); EOSINOPHILS % (AUTO) 3 % (0-10); HEMATOCRIT 43 % (35-52); HEMOGLOBIN 14.1 g/dL (11.5-16.0); LYMPHOCYTES # (AUTO) 1.6 10^3/uL (1.0-4.0); LYMPHOCYTES % (AUTO) 26 % (12-44); MEAN CORPUSCULAR HEMOGLOBIN 32 pg (25-34); MEAN CORPUSCULAR HGB CONC 33 g/dL (32-36); MEAN CORPUSCULAR VOLUME 96 fL (80-99); MEAN PLATELET VOLUME 10.4 fL (9.0-12.2); MONOCYTES # (AUTO) 0.5 10^3/uL (0.0-1.0); MONOCYTES % (AUTO) 8 % (0-12); NEUTROPHILS # (AUTO) 3.7 10^3/uL (1.8-7.8); NEUTROPHILS % (AUTO) 62 % (42-75); PLATELET COUNT 307 10^3/uL (130-400); WHITE BLOOD COUNT 5.9 10^3/uL (4.3-11.0)
[2021-12-21] MEDS ORDERED: proPOfol 200 MG/20 ML (DIPRIVAN) VIAL IV ONE (13:00)
[2021-12-21] MEDS ORDERED: ROCURONIUM 50 MG/5 ML (ZEMURON) VIAL IV ONE (13:00)
[2021-12-21] MEDS ORDERED: LIDOCAINE PF 2% 5 ML (XYLOCAINE) VIAL ONE (13:00)
[2021-12-21] MEDS ORDERED: SEVOFLURANE (ULTANE) 15 ML INHAL SOLN ONE ×2 (13:00→13:20)
[2021-12-21] MEDS ORDERED: ONDANSETRON 4 MG/2 ML (SDV) Z0FRAN ONE (13:00)
[2021-12-21] MEDS ORDERED: GLYCOPYRROLATE 0.2 MG/ML (ROBINUL) 2 ML VIAL ONE (13:20)
[2021-12-21] MEDS ORDERED: NEOSTIGMINE 3 MG/3 ML VIAL ONE (13:20)
--- NOTE | 2021-12-21 13:37 | Progress Note-Post Operative ---
Post-Operative Progess Note Surgeon (s)/Compressor Mechanic (s) Surgeon JULIET CARREON MD Compressor Mechanic: neida scott TUNNEL KILN OPERATOR Pre-Operative Diagnosis recurrent symptomatic incisional hernia Post-Operative Diagnosis same, large defect ecompassing 2 previous meshes. Procedure & Operative Findings Date of Procedure 12/21/21 Procedure Performed/Findings exploratory laparotomy, explantation mesh, anterior fascial release, enterorraphy, repair over phasix resorbable mesh. Anesthesia Type get Estimated Blood Loss Estimated blood loss (mL): minimal Specimens/Packing Specimens Removed none JULIET CARREON MD Dec 21, 2021 13:37
[2021-12-21] MEDS ORDERED: fentaNYL INJ 100 MCG/2 ML AMP IVP ONE (14:15)
[2021-12-21] MEDS ORDERED: ONDANSETRON 4 MG/2 ML (SDV) Z0FRAN IVP PRN (14:15)
--- NOTE | 2021-12-21 14:23 | Anesthesia-General Post-Op ---
General Patient Condition Mental Status/LOC: Same as Preop Cardiovascular: Satisfactory Nausea/Vomiting: Absent Respiratory: Satisfactory Pain: Controlled Complications: Absent Post Op Complications Complications None Follow Up Care/Instructions Patient Instructions None needed. Anesthesia/Patient Condition Patient Condition Patient is doing well, no complaints, stable vital signs, no apparent adverse anesthesia problems. No complications reported per nursing. WALLY CUNNINGHAM CRNA Dec 21, 2021 14:23
[2021-12-21] MEDS: ALPRAZolam 1 MG (XANAX) TAB PO PRN (15:36)
[2021-12-21] MEDS: fentaNYL INJ 100 MCG/2 ML AMP IVP PRN ×2 (15:36→18:50)
[2021-12-21] MEDS: HYDROcodone/APAP 7.5 MG/325 MG (LORTAB, LORCET PLUS) TABLET PO PRN ×2 (17:32→21:37)
--- NOTE | 2021-12-21 23:17 | OPERATIVE REPORT ---
DATE OF SERVICE: 12/21/2021 ATTENDING PRIMARY CARE PHYSICIAN: Dr. Ganga Cervantes. PREOPERATIVE DIAGNOSIS: Symptomatic recurrent ventral abdominal incisional hernia. POSTOPERATIVE DIAGNOSIS: Symptomatic recurrent ventral abdominal incisional hernia with significant adhesion tissue, large hernia defect. PROCEDURES: Exploratory laparotomy, explantation of previous two meshes, lysis of adhesions, enterorrhaphy, component separation, closure fascia over a Phasix bioabsorbable mesh. SURGEON: Elijah Carreon MD. MANAGER REPORT: Gilson Muniz APRN. ANESTHESIA: General endotracheal. ESTIMATED BLOOD LOSS: Minimal. FINDINGS: Large defect approximately 6 to 7 cm in size encompassing 2 previous meshes. Significant adhesions. Single enterotomy identified. DISPOSITION: The patient tolerated the procedure well. INDICATIONS: The patient is a 46-year-old female with a longstanding history of recurrent hernias. She underwent previous surgery and was scheduled for a hysterectomy; however, due to adhesions and small bowel injury, she underwent small bowel resection and anastomosis. She then developed a hernia in this region and this was repaired with mesh. This was around 2018. She then developed another hernia and she did have significant risk factors including morbid obesity as well as smoking. This was once again repaired. She again returns with a larger defect. She is now status post gastric sleeve resection and has lost a significant amount of weight and states that she has redeveloped hernia, which is painful. She is otherwise eating well and having normal bowel movements. It was explained to her that there will be significant risk of recurrence if she does continue to smoke and she is understanding of this and states that she is quitting. DESCRIPTION OF PROCEDURE: The patient was brought to the operating room, laid supine on the table. After adequate IV pain and sedative medications and general endotracheal intubation, abdomen was prepped and draped in standard surgical fashion. A 0.5% Marcaine with epinephrine was used to anesthetize the previous midline incision and a skin incision was made using a 15 blade. A large defect was identified and this was encompassing both the previous meshes. We then proceeded in a systematic dissection of the mesh from the fascia using Metzenbaum scissors as well as electrocautery. During the dissection, there was significant intra-abdominal adhesions towards the two meshes and a single enterotomy was identified and this was immediately repaired primarily with 3-0 silk interrupted sutures. The two meshes were then completely excised in a systematic fashion. We then proceeded with component separation of the anterior fascia using electrocautery. By doing this, we did have enough fascia for primary closure. We decided to proceed with primary repair over a Phasix combination of absorbable and nonabsorbable mesh 15.2 cm in diameter. This was placed and sutured to the fascia using interrupted 0 Prolene sutures. The fascia was then closed over the mesh using #1 PDS looped suture. Good hemostasis was observed. The subcutaneous tissue was then reapproximated using 3-0 Vicryl interrupted sutures. Skin was closed using 4-0 Monocryl running subcuticular suture. Wound was then cleaned and covered with Dermabond followed by 4 x 4 gauze, tonsil sponges, as well as large Op-Site and abdominal binder. The patient tolerated the procedure well. We will admit her 23-hour observation and proceed with IV and oral pain medication as well as clear liquid diet and advance as tolerated. She will also be instructed to continue the abdominal binder for the next two weeks as well. Again, it was explained to her that she does need to start smoking or else she will have continued issues with hernia recurrence. Job ID: [id number] DocumentID: [id number] Dictated Date: 12/21/2021 13:55:57 Loom Operator Date: 12/21/2021 23:16:01 Dictated By: ELIJAH CARREON MD
[2021-12-22 00:19] VITALS: BP 132/72
[2021-12-22] MEDS: fentaNYL INJ 100 MCG/2 ML AMP IVP PRN ×3 (01:14→09:50)
[2021-12-22] MEDS: HYDROcodone/APAP 7.5 MG/325 MG (LORTAB, LORCET PLUS) TABLET PO PRN ×3 (02:22→11:41)
[2021-12-22] MEDS: ONDANSETRON 4 MG/2 ML (SDV) Z0FRAN IVP PRN ×3 (02:22→20:38)
[2021-12-22 04:02] VITALS: BP 108/70
[2021-12-22 07:40] VITALS: BP 144/60
[2021-12-22] MEDS: ALPRAZolam 1 MG (XANAX) TAB PO PRN ×2 (08:21→20:26)
[2021-12-22] MEDS ORDERED: DOCUSATE SODIUM 100 MG (COLACE) CAP PO ONE ×2 (11:15→11:33)
[2021-12-22] MEDS ORDERED: SENNA W/DOCUSATE (SENOKOT S) TABLET PO ONE (11:15)
--- NOTE | 2021-12-22 11:24 | Progress Note ---
Subjective Date Seen by a Provider: Dec 22, 2021 Time Seen by a Provider: 11:00 Subjective/Events-last exam doing well. tolerating diet. pain controlled. Objective Exam Vital Signs Date Time Temp Pulse Resp B/P (MAP) Pulse Ox O2 Delivery O2 Flow Rate FiO2 12/22/21 08:00 97 Room Air 12/22/21 07:40 36.4 77 17 144/60 (88) 97 Room Air 12/22/21 04:02 36.1 80 20 108/70 (83) 96 Room Air 12/22/21 00:19 36.7 93 20 132/72 (92) 94 Room Air 12/21/21 20:00 Room Air 12/21/21 20:00 36.5 98 20 108/77 (87) 94 Room Air 12/21/21 16:00 36.4 84 20 113/74 (87) 94 Room Air 12/21/21 15:30 92 2.00 12/21/21 14:53 Nasal Cannula 2 12/21/21 14:40 36.2 16 128/66 (86) 92 Nasal Cannula 2 12/21/21 14:30 18 134/64 (87) 96 OxyMask 4 12/21/21 14:30 OxyMask 4 12/21/21 14:20 24 127/66 (86) 96 OxyMask 4 12/21/21 14:15 OxyMask 4 12/21/21 14:10 20 143/85 (104) 97 OxyMask 4 12/21/21 14:00 22 126/79 (95) 97 OxyMask 6 12/21/21 14:00 OxyMask 6 12/21/21 13:49 OxyMask 6 12/21/21 13:49 36.4 24 125/72 (89) 97 OxyMask 6 I & O 12/22/21 07:00 Intake Total 2250 ml Output Total 1050 ml Balance 1200 ml Capillary Refill : General Appearance: No Apparent Distress HEENT: PERRL/EOMI Neck: Full Range of Motion Respiratory: Chest Non Tender Cardiovascular: Regular Rate, Rhythm Gastrointestinal: soft, tenderness, other (wound clean/dry) Extremity: Normal Capillary Refill Neurologic/Psychiatric: Alert, Oriented x3 Skin: Normal Color Lymphatic: No Adenopathy Results Lab Laboratory Tests 12/21/21 11:50: White Blood Count 5.9, Red Blood Count 4.44, Hemoglobin 14.1, Hematocrit 43, Mean Corpuscular Volume 96, Mean Corpuscular Hemoglobin 32, Mean Corpuscular Hemoglobin Concent 33, Red Cell Distribution Width 13.2, Platelet Count 307, Mean Platelet Volume 10.4, Immature Granulocyte % (Auto) 0, Neutrophils (%) (Auto) 62, Lymphocytes (%) (Auto) 26, Monocytes (%) (Auto) 8, Eosinophils (%) (Auto) 3, Basophils (%) (Auto) 1, Neutrophils # (Auto) 3.7, Lymphocytes # (Auto) 1.6, Monocytes # (Auto) 0.5, Eosinophils # (Auto) 0.2, Basophils # (Auto) 0.0, Immature Granulocyte # (Auto) 0.0 Microbiology 12/21/21 MRSA Screen - Final, Complete MRSA not isolated Assessment/Plan Assessment/Plan Assess & Plan/Chief Complaint s/p explantation previous meshes, enterorraphy, fascial closure over mesh. JULIET CARREON MD Dec 22, 2021 11:24
[2021-12-22] MEDS ORDERED: SENNA W/DOCUSATE (SENOKOT S) TABLET ONE (11:33)
[2021-12-22] MEDS ORDERED: ceFAZolin 2 GM IV Premixed 50 ML IV NR (11:45)
[2021-12-22 12:15] VITALS: BP 111/55
[2021-12-22] MEDS: oxyCODONE/APAP 7.5-325 MG (PERCOCET 7.5) TABLET PO PRN ×3 (14:05→22:01)
[2021-12-22 16:11] VITALS: BP 110/73
[2021-12-22] MEDS: DOCUSATE SODIUM 100 MG (COLACE) CAP PO SCH (20:26)
[2021-12-22] MEDS: SENNA W/DOCUSATE (SENOKOT S) TABLET PO SCH (20:27)
[2021-12-22] MEDS: SIMETHICONE 80 MG (MYLICON) CHEW PO PRN (20:27)
[2021-12-22 20:33] VITALS: BP 123/60
[2021-12-23] VITALS: BP 106/49
[2021-12-23] MEDS: oxyCODONE/APAP 7.5-325 MG (PERCOCET 7.5) TABLET PO PRN ×4 (02:08→20:33)
[2021-12-23 04:00] VITALS: BP 108/66
[2021-12-23] MEDS: SIMETHICONE 80 MG (MYLICON) CHEW PO PRN ×4 (05:22→20:32)
[2021-12-23] MEDS: ONDANSETRON 4 MG/2 ML (SDV) Z0FRAN IVP PRN ×2 (05:25→15:52)
[2021-12-23 07:31] VITALS: BP 106/53
[2021-12-23] MEDS: SENNA W/DOCUSATE (SENOKOT S) TABLET PO SCH ×2 (07:58→19:49)
[2021-12-23] MEDS: DOCUSATE SODIUM 100 MG (COLACE) CAP PO SCH ×2 (07:58→19:49)
[2021-12-23] MEDS: ALPRAZolam 1 MG (XANAX) TAB PO PRN ×2 (08:22→19:49)
[2021-12-23] MEDS: fentaNYL INJ 100 MCG/2 ML AMP IVP PRN (08:25)
[2021-12-23 11:28] VITALS: BP 107/55
[2021-12-23] MEDS: HYDROcodone/APAP 7.5 MG/325 MG (LORTAB, LORCET PLUS) TABLET PO PRN (12:18)
[2021-12-23 16:14] VITALS: BP 109/55
[2021-12-23 19:45] VITALS: BP 127/65
[2021-12-23] MEDS ORDERED: MILK OF MAGNESIA 400 MG/5 ML 30 ML UDC PO PRN (20:15)
[2021-12-23] MEDS ORDERED: PROMETHAZINE INJ 25 MG/ML (PHENERGAN) AMP IVP PRN (20:15)
[2021-12-23] MEDS ORDERED: NICOTINE 21 MG (NICODERM) PATCH TD SCH (20:15)
[2021-12-23] MEDS ORDERED: PANTOPRAZOLE 40 MG (PROTONIX) TAB PO ONE (20:17)
[2021-12-23] MEDS ORDERED: NICOTINE 21 MG (NICODERM) PATCH ONE (20:17)
[2021-12-23 20:39] LABS: HEMATOCRIT 38 % (35-52); HEMOGLOBIN 12.3 g/dL (11.5-16.0); MEAN CORPUSCULAR HEMOGLOBIN 32 pg (25-34); MEAN CORPUSCULAR HGB CONC 33 g/dL (32-36); MEAN CORPUSCULAR VOLUME 98 fL (80-99); MEAN PLATELET VOLUME 9.9 fL (9.0-12.2); PLATELET COUNT 267 10^3/uL (130-400); WHITE BLOOD COUNT 4.4 10^3/uL (4.3-11.0)
[2021-12-23 20:54] LABS: POTASSIUM 4.4 MMOL/L (3.6-5.0)
[2021-12-23 20:55] LABS: CALCIUM 8.8 MG/DL (8.5-10.1)
[2021-12-23 21:00] LABS: CREATININE SERUM 0.66 MG/DL (0.60-1.30)
[2021-12-23] MEDS: PANTOPRAZOLE 40 MG (PROTONIX) TAB PO SCH (21:00)
[2021-12-23] MEDS ORDERED: PANTOPRAZOLE 40 MG (PROTONIX) TAB PO SCH (21:00)
[2021-12-23] MEDS ORDERED: ONDANSETRON 4 MG (ZOFRAN) ORAL DISSOLVE TAB PO PRN (21:15)
[2021-12-23] MEDS ORDERED: PROMETHAZINE 25 MG (PHENERGAN) TAB PO PRN (21:15)
[2021-12-23] MEDS ORDERED: MILK OF MAGNESIA 400 MG/5 ML 30 ML UDC ONE (21:24)
[2021-12-23] MEDS ORDERED: PROMETHAZINE 25 MG (PHENERGAN) TAB ONE (21:24)
[2021-12-24] VITALS: BP 103/67
[2021-12-24] MEDS: oxyCODONE/APAP 7.5-325 MG (PERCOCET 7.5) TABLET PO PRN ×2 (02:57→06:37)
[2021-12-24 03:21] VITALS: BP 113/55
[2021-12-24] MEDS: PANTOPRAZOLE 40 MG (PROTONIX) TAB PO SCH (06:37)
[2021-12-24 07:18] VITALS: BP 109/74
--- NOTE | 2021-12-24 09:15 | Progress Note ---
Subjective Date Seen by a Provider: Dec 24, 2021 Time Seen by a Provider: 09:00 Subjective/Events-last exam tolerating diet. no BM. ambulating well. no fever/chills. complains of mild intermittent nausea and pain Objective Exam Vital Signs Date Time Temp Pulse Resp B/P (MAP) Pulse Ox O2 Delivery O2 Flow Rate FiO2 12/24/21 07:18 36.4 92 18 109/74 (86) 94 Room Air 12/24/21 03:21 37.2 92 18 113/55 (74) 93 Room Air 12/24/21 00:00 36.1 90 17 103/67 (79) 97 Room Air 12/23/21 19:45 Room Air 12/23/21 19:45 36.3 100 18 127/65 (85) 98 Room Air 12/23/21 16:14 35.8 86 18 109/55 (73) 95 Room Air 12/23/21 11:28 36.0 91 18 107/55 (72) 97 Room Air I & O 12/24/21 07:00 Intake Total 1600 ml Output Total 1150 ml Balance 450 ml Capillary Refill : General Appearance: No Apparent Distress HEENT: PERRL/EOMI Neck: Full Range of Motion Respiratory: Chest Non Tender, Lungs Clear Cardiovascular: Regular Rate, Rhythm Gastrointestinal: soft, tenderness Extremity: Normal Capillary Refill Neurologic/Psychiatric: Alert, Oriented x3 Skin: Normal Color Lymphatic: No Adenopathy Results Lab Laboratory Tests 12/23/21 20:30: White Blood Count 4.4, Red Blood Count 3.86, Hemoglobin 12.3, Hematocrit 38, Mean Corpuscular Volume 98, Mean Corpuscular Hemoglobin 32, Mean Corpuscular Hemoglobin Concent 33, Red Cell Distribution Width 13.4, Platelet Count 267, Mean Platelet Volume 9.9, Sodium Level 139, Potassium Level 4.4, Chloride Level 106, Carbon Dioxide Level 22, Anion Gap 11, Blood Urea Nitrogen 11, Creatinine 0.66, Estimat Glomerular Filtration Rate 111, BUN/Creatinine Ratio 17, Glucose Level 83, Calcium Level 8.8 Microbiology 12/21/21 MRSA Screen - Final, Complete MRSA not isolated Assessment/Plan Assessment/Plan Assess & Plan/Chief Complaint s/p explantation previous meshes, enterorraphy, fascial closure over mesh. needs to ambulate more to promote GI motility. IV pain medications stopped. does meet medical criteria for discharge however states pain not adequately controlled. pt does not appear to be in acute distress. JULIET CARREON MD Dec 24, 2021 09:15
== END 2021-12-24 11:00 | disposition home or self-care (01) ==
LOC: SDC 09:11 → 4TH 14:55 → SDC 12-24 11:00
PROVIDERS: ATTEND Surgery
DX: K43.2 Incisional hernia without obstruction or gangrene (principal); E66.01 Morbid (severe) obesity due to excess calories; Z98.84 Bariatric surgery status; Z68.34 Body mass index [BMI] 34.0-34.9, adult; F17.210 Nicotine dependence, cigarettes, uncomplicated
CPT/HCPCS: 36415; 84703; 85025; 87081; 94664

== ENCOUNTER → 2022-01-17 | Outpatient (CLI) | payer MEDICAID ==
[~2022-01-17] MED LIST changes: +HYDR-3817 PO
--- NOTE | 2022-01-17 16:26 | Diagnostic Imaging Report ---
EXAMINATION: CT abdomen and pelvis without contrast. TECHNIQUE: Multiple contiguous axial images were obtained through the abdomen and pelvis without the use of intravenous contrast. All CT scans use one or more of the following dose optimizing techniques: automated exposure control, MA and/or KvP adjustment based on patient size and exam type or iterative reconstruction. HISTORY: ABD PAIN,HERNIA REPAIR COMPARISON: 09/20/2019 FINDINGS: Lung bases: The lung bases are clear. Solid organs: The liver is normal. The gallbladder is normal. There is no biliary ductal dilation. Pancreas is normal. Spleen is normal. Adrenal glands are normal. There is a nonobstructing 0.2 cm right renal calculus. No hydronephrosis. Bowel: Surgical changes of the stomach. No bowel obstruction. There is scattered colonic diverticulosis. The appendix is normal. Peritoneum: There is no intraperitoneal free fluid or free air. No suspicious lymphadenopathy. Vasculature: Normal without aneurysm. Musculoskeletal: No suspicious osseous lesion or compression fracture. Small ventral abdominal wall hernias with fat stranding of the adjacent subcutaneous fat. Pelvis: The uterus is surgically absent. No adnexal mass. The urinary bladder is normal. IMPRESSION: 1. Small ventral abdominal wall hernias with fat stranding seen within the periumbilical subcutaneous tissues. This could represent postoperative change versus an infectious or inflammatory process. No loculated fluid collection. 2. No other acute abnormality in the abdomen or pelvis. Dictated by: Dictated on workstation # [id number]
== END ==
LOC: RAD 14:35
PROVIDERS: ATTEND Surgery
DX: K43.9 Ventral hernia without obstruction or gangrene (principal); Z98.890 Other specified postprocedural states
CPT/HCPCS: 74176

== ENCOUNTER → 2022-01-23 | Outpatient (CLI) | payer MEDICAID ==
[2022-01-23 13:57] LABS: BASOPHILS # (AUTO) 0.1 10^3/uL (0.0-0.1); BASOPHILS % (AUTO) 1 % (0-10); EOSINOPHILS # (AUTO) 0.2 10^3/uL (0.0-0.3); EOSINOPHILS % (AUTO) 3 % (0-10); HEMATOCRIT 46 % (35-52); HEMOGLOBIN 14.6 g/dL (11.5-16.0); LYMPHOCYTES # (AUTO) 1.3 10^3/uL (1.0-4.0); LYMPHOCYTES % (AUTO) 22 % (12-44); MEAN CORPUSCULAR HEMOGLOBIN 31 pg (25-34); MEAN CORPUSCULAR HGB CONC 32 g/dL (32-36); MEAN CORPUSCULAR VOLUME 97 fL (80-99); MEAN PLATELET VOLUME 9.5 fL (9.0-12.2); MONOCYTES # (AUTO) 0.3 10^3/uL (0.0-1.0); MONOCYTES % (AUTO) 6 % (0-12); NEUTROPHILS # (AUTO) 3.9 10^3/uL (1.8-7.8); NEUTROPHILS % (AUTO) 68 % (42-75); PLATELET COUNT 351 10^3/uL (130-400); WHITE BLOOD COUNT 5.7 10^3/uL (4.3-11.0)
== END ==
LOC: LAB 13:38
PROVIDERS: ATTEND Surgery
DX: Z01.89 Encounter for other specified special examinations (principal)
CPT/HCPCS: 36415; 85025

== ENCOUNTER → 2023-05-02 | Outpatient (CLI) | payer MEDICAID ==
[~2023-05-02] MED LIST changes: +ALBU8.5H6 IH; -RT-ALBUINH IH
[2023-05-02 12:45] LABS: BASOPHILS % (AUTO) 0 % (0-10); EOSINOPHILS # (AUTO) 0.1 10^3/uL (0.0-0.3); EOSINOPHILS % (AUTO) 2 % (0-10); HEMATOCRIT 46 % (35-52); LYMPHOCYTES # (AUTO) 1.8 10^3/uL (1.0-4.0); LYMPHOCYTES % (AUTO) 27 % (12-44); MEAN CORPUSCULAR HEMOGLOBIN 32 pg (25-34); MEAN CORPUSCULAR HGB CONC 33 g/dL (32-36); MEAN CORPUSCULAR VOLUME 97 fL (80-99); MEAN PLATELET VOLUME 8.9 fL (9.0-12.2); MONOCYTES # (AUTO) 0.5 10^3/uL (0.0-1.0); MONOCYTES % (AUTO) 7 % (0-12); NEUTROPHILS # (AUTO) 4.2 10^3/uL (1.8-7.8); NEUTROPHILS % (AUTO) 64 % (42-75); PLATELET COUNT 383 10^3/uL (130-400); WHITE BLOOD COUNT 6.6 10^3/uL (4.3-11.0)
[2023-05-02 13:07] LABS: ALBUMIN 4.3 GM/DL (3.2-4.5); BILIRUBIN,TOTAL 0.7 MG/DL (0.1-1.0); CREATININE SERUM 0.72 MG/DL (0.60-1.30); POTASSIUM 4.1 MMOL/L (3.6-5.0); TOTAL PROTEIN 7.4 GM/DL (6.4-8.2)
== END ==
LOC: LAB 12:24
PROVIDERS: ATTEND Family Medicine
DX: Z00.01 Encounter for general adult medical examination with abnormal findings (principal); R53.83 Other fatigue
CPT/HCPCS: 36415; 80053; 85025

== ENCOUNTER → 2023-05-30 | Outpatient (CLI) | payer MEDICAID ==
--- NOTE | 2023-05-30 18:11 | Diagnostic Imaging Report ---
INDICATION: Routine screening. COMPARISON: Prior mammograms from 10/26/2021 and 08/07/2018. EXAMINATION: 2D and 3D bilateral screening mammography was performed with CAD. The current study was also evaluated with a Computer Aided Detection (CAD) system. FINDINGS: Both breasts are heterogeneously dense, limiting the sensitivity of mammography. No mass or malignant-appearing microcalcifications are identified. Axillae are unremarkable. IMPRESSION: No mammographic features suspicious for malignancy are identified. ACR BI-RADS Category 1: Negative. Result letter will be mailed to the patient. Note: At least 10% of breast cancer is not imaged by mammography. Dictated by: Dictated on workstation # [id number]
== END ==
LOC: RAD 14:35
PROVIDERS: ATTEND Family Medicine
DX: Z12.31 Encounter for screening mammogram for malignant neoplasm of breast (principal)
CPT/HCPCS: 77063; 77067

== ENCOUNTER → 2023-05-30 | Outpatient (CLI) | payer MEDICAID ==
[~2023-05-30] MED LIST changes: +IOHEXOL 350 MG/ML 100 ML (OMNIPAQUE 350) VIAL IV ONE; +NS 100 ML (IVPB) BAG IV ONE
--- NOTE | 2023-05-30 15:46 | Diagnostic Imaging Report ---
EXAMINATION: CT abdomen and pelvis with intravenous contrast. TECHNIQUE: Multiple contiguous axial images were obtained through the abdomen and pelvis after the uneventful administration of intravenous contrast. All CT scans use one or more of the following dose optimizing techniques: automated exposure control, MA and/or KvP adjustment based on patient size and exam type or iterative reconstruction. HISTORY: Ventral abdominal hernia COMPARISON: 01/17/2022 FINDINGS: Lung bases: The lung bases are clear. Solid organs: The liver is normal without focal lesion. The gallbladder is surgically absent. There is no biliary ductal dilation. Pancreas is normal. Spleen is normal. Adrenal glands are normal. The kidneys are normal without hydronephrosis. Bowel: Surgical changes of the stomach from prior gastric sleeve. There is no bowel obstruction. There is scattered colonic diverticulosis. The appendix is normal. Peritoneum: There is no intraperitoneal free fluid or free air. No suspicious lymphadenopathy. Vasculature: Calcification of the aorta without aneurysm. Musculoskeletal: No suspicious osseous lesion or compression fracture. Surgical changes from ventral abdominal hernia repair with possible mesh placement. Along the inferior left lateral margin of this region there is an additional area of herniation through a 4.4 cm defect. Contains multiple loops of bowel without evidence of obstruction. Pelvis: The uterus is surgically absent. No adnexal mass. The urinary bladder is normal. IMPRESSION: 1. A left paracentral ventral abdominal wall hernia just inferior to the prior repair. There is a 4.4 cm defect containing multiple loops of bowel without evidence of obstruction. 2. No other acute abnormality in the abdomen or pelvis. 3. Colonic diverticulosis. Dictated by: Dictated on workstation # [id number]
== END ==
LOC: RAD 14:35
PROVIDERS: ATTEND Registered Nurse General Practice
DX: K57.90 Diverticulosis of intestine, part unspecified, without perforation or abscess without bleeding (principal); K43.9 Ventral hernia without obstruction or gangrene
CPT/HCPCS: 74177